=== PATIENT | female | born 1965 | race Hispanic/Latino ===

== ENCOUNTER 2019-06-26 12:48 | Outpatient (CLI) | payer OTHER, SELFPAY ==
--- NOTE | ~2019-06-26 | MMUS_ITS ---
EXAMINATION: MM diagnostic barrie BI w daljit, US breast LT complete HISTORY: Inversion of left nipple for 6 months TECHNIQUE: Bilateral ML, MLO and cc full field and left spot ML and cc Tomosynthesis views.were perfo rmed and synthetic 2-D images were generated. CAD analysis was submitted and interpreted. High resolu tion breast ultrasound was performed. COMPARISON: 05/24/2018, 05/17/2017, 05/08/2017 bilateral digital screening mammogram examinations BREAST PARENCHYMAL COMPOSITION: There are scattered areas of fibroglandular density. FINDINGS: MAMMOGRAPHIC FINDINGS: Scattered bilateral benign calcifications. No suspicious mass or architectural distortion, malignant calcification, skin thickening or retraction or significant new or developing density is detected. Th e nipples appear symmetric. ULTRASOUND: At 12:00 5 cm from the nipple there is a parallel circumscribed benign-appearing septated cystic lesi on measuring approximately 2 x 5 x 6 mm, without internal vascularity or posterior shadowing. The complete left breast was scanned. No suspicious mass or shadowing of the left breast is evident. IMPRESSION: 1. No mammographic evidence of malignancy 2. Routine annual mammographic screening is recommended BI-RADS Category 2: Benign finding(s). Reviewed, dictated and finalized at location A. G ADULT LIBRARIAN IMPRESSION: 1. No mammographic evidence of malignancy 2. Routine annual mammographic screening is recommended BI-RADS Category 2: Benign finding(s).
== END 2019-06-26 12:49 | disposition home or self-care (01) ==
PROVIDERS: PCP Registered Nurse; Visit Provider Registered Nurse
DX: N64.59 Other signs and symptoms in breast (principal)
CPT/HCPCS: 76641; 77062; 77066; G0279

== ENCOUNTER 2020-11-03 10:30 | Outpatient (CLI) | payer OTHER, SELFPAY ==
--- NOTE | ~2020-11-03 | MM_ITS ---
EXAMINATION: MM screening barrie BI w daljit HISTORY: Screening mammogram TECHNIQUE: Craniocaudal and mediolateral oblique 3-D tomosynthesis images were obtained and synthetic 2-D images were generated. CAD analysis was submitted and interpreted. COMPARISON: No prior mammogram is available for comparison at this institution. BREAST PARENCHYMAL COMPOSITION: There are scattered areas of fibroglandular density. FINDINGS: There are scattered bilateral benign calcifications. There is no evidence of suspicious mas s, calcification, or architectural distortion to suggest malignancy in either breast. There has been no suspicious interval change. IMPRESSION: 1. No mammographic evidence of malignancy. 2. Recommend routine screening mammography in one year. BI-RADS Category 2: Benign finding(s). Reviewed, dictated and finalized at location A.
== END 2020-11-03 10:31 | disposition home or self-care (01) ==
LOC: ANHIMG 10:33
PROVIDERS: PCP Registered Nurse; Visit Provider Registered Nurse
DX: Z12.31 Encounter for screening mammogram for malignant neoplasm of breast (principal)
CPT/HCPCS: 77063; 77067

== ENCOUNTER 2021-01-02 19:51 | Emergency (ER) | payer OTHER, SELFPAY ==
--- NOTE | ~2021-01-02 | XR_ITS ---
EXAMINATION: XR foot RT min 3V DATE: 01/02/2021 20:10 INDICATION: Right foot injury and pain. TECHNIQUE: 4 views of right foot were obtained. COMPARISON: Right foot radiographs 08/14/2016 FINDINGS: Bone alignment is normal. No fracture. There is moderate osteoarthritis of first metatarsop halangeal joint and mild osteoarthritis of some the interphalangeal and midfoot joints. There is hete rotopic calcification dorsal to the talar neck. There is an enthesophyte at plantar aspect of calcane al tuberosity. IMPRESSION: 1. Polyarticular osteoarthritis. Reviewed, dictated and finalized at location A.
--- NOTE | ~2021-01-02 | XR_ITS ---
EXAMINATION: XR ankle RT min 3V DATE: 01/02/2021 20:10 INDICATION: Right ankle injury and pain. TECHNIQUE: 4 views of right ankle were obtained. COMPARISON: None. FINDINGS: Bone alignment is normal. No fracture. There is an osteochondral lesion of medial talar dom e. There is mild osteoarthritis of talonavicular joint. There are enthesophytes at the posterior and plantar aspects of calcaneal tuberosity. IMPRESSION: 1. Osteochondral lesion of medial talar dome. Reviewed, dictated and finalized at location A.
[2021-01-02 19:59] VITALS: BP 148/73; PULSE 64; RESP 16; TEMP 36.7; O2SAT 100
[2021-01-02 20:10] VITALS: BP 148/73; PULSE 64; RESP 16; TEMP 36.7; O2SAT 100
--- NOTE | 2021-01-02 20:12 | ED.GENADULT ---
HPI - General Adult General Chief complaint: Extremity Injury, Lower Stated complaint: fell right foot Time Seen by Provider: 01/02/21 20:09 Source: patient, family (niece (Katina) in which Violeta request that she translates for her) and RN notes reviewed Mode of arrival: ambulatory (with crutches) Limitations: language barrier History of Present Illness HPI narrative: 55-year-old female presents with niece, both complains of pain to the right ankle for the past 51 minutes. Violeta twisted RT foot while walking down steps and heard a popping noise afterwards and now has RT foot and ankle pain. No treatment. Radiating pain from ankle to foot. ?No numbness or tingling or loss of mobility. ?Denies inability to bear weight. ?Exacerbation factor consists of movement and bearing weight. No relieving factors. Denies discoloration. ?Denies altered sensation, back pain, neck pain, and suspected foreign body. ?Denies hitting head or loss of consciousness. Denies fever or chills. Remains active. The patient and niece reports iVoleta has not been diagnosed with COVID-19. The patient and niece reports Violeta received 2 Pfizer COVID-19 vaccines. The patient and niece reports Violeta is not waiting for the results of a COVID-19 lab test. The patient and niece reports Violeta does not have weakness, fatigue, or myalgia. The patient and niece reports Violeta does not have a new or worsening cough or shortness of breath. The patient and niece reports Violeta does not have any rhinorrhea, congestion, loss of taste or smell, sore throat, and diarrhea. Denies recent traveling. Denies concerns for COVID-19 or exposures. At this time, the patient is not suspected of having COVID-19. Some parts of this dictation were generated by voice recognition software and may contain typographical and/or grammatical inaccuracies. Related Data Allergies Allergy/AdvReac Type Severity Reaction Status Date / Time No Known Allergies Allergy Verified 01/02/21 20:00 Review of Systems Review of Systems: CONSTITUTIONAL: Denies fever, chills, sweats. EYES: Denies visual changes, redness, discharge. ENT: Denies rhinorrhea, congestion, sore throat, otalgia. CARDIOVASCULAR: Denies chest pain, palpitations, edema. RESPIRATORY: Denies dyspnea, wheezing, cough GASTROINTESTINAL: Denies abdominal pain, nausea, vomiting, diarrhea. SKIN: Denies rash or itching. MUSCULOSKELETAL: Denies acute back pain or myalgia. Complains of RT ankle and foot swelling and pain. NEUROLOGIC: Denies numbness or focal weakness. PSYCHIATRIC: Denies anxiety or depression. All other systems reviewed & are unremarkable except as noted in HPI and below. PMFSH Past Medical History Medical History (Updated 01/10/21 @ 18:59 by RENEE Regan) Migraine No significant past medical history Surgical History Surgical History (Updated 01/10/21 @ 18:59 by RENEE Regan) No significant past surgical history Family History Family History (Updated 01/10/21 @ 18:59 by RENEE Regan) Father Acute myocardial infarction, Onset Age: 63 Mother Alive and well Social History Social History (Updated 01/10/21 @ 18:58 by RENEE Regan) Smoking status: Former smoker Tobacco type: cigarettes Second hand tobacco smoke exposure: Yes (spouse) Smoking end date: 06/14/17 Alcohol intake: never Substance use: never Substance use type: does not use Living arrangements: with family Occupation/Education: other Additional occupation/education comments: homemaker Gender identity (if verbalized by the patient): Female Sexual Orientation (if Verbalized by the Patient): Straight or Heterosexual Comments At time of signature, agree with the nurse past medical, surgical, social, and family history. There is no relevant family history pertinent to the presenting complaint. Exam Narrative: GENERAL: This is a well-nourished, well-developed patient, in no apparent dis
== END 2021-01-02 20:32 | disposition home or self-care (01) ==
PROVIDERS: Emergency Provider Nurse Practitioner Family; PCP Registered Nurse
DX: S93.601A Unspecified sprain of right foot, initial encounter (principal); X58.XXXA Exposure to other specified factors, initial encounter
CPT/HCPCS: 73610; 73630; 99213; G0463

== ENCOUNTER → 2021-09-09 12:50 | Outpatient (CLI) | payer OTHER, SELFPAY ==
--- NOTE | ~2021-09-09 | XR_ITS ---
EXAMINATION: XR shoulder RT min 2V INDICATION: Diffuse right shoulder pain TECHNIQUE: Four views of the right shoulder are submitted. COMPARISON: None FINDINGS: Normal alignment. No fracture. There is mild osteoarthritis of the acromioclavicular and gl enohumeral joints. Soft tissues are unremarkable. IMPRESSION: 1. Osteoarthritis without acute osseous abnormality. Reviewed, dictated and finalized at location B.
== END ==
PROVIDERS: PCP Registered Nurse; Visit Provider Registered Nurse
DX: M19.011 Primary osteoarthritis, right shoulder (principal)
CPT/HCPCS: 73030

== ENCOUNTER → 2021-11-03 16:38 | Outpatient (CLI) | payer OTHER, SELFPAY ==
--- NOTE | ~2021-11-03 | MR_ITS ---
EXAMINATION: MR shoulder RT wo con DATE: 11/03/2021 17:19 INDICATION: Right shoulder pain TECHNIQUE: Magnetic resonance imaging (MRI) of the right shoulder was performed without intravenous c ontrast. Sequences included axial PD-weighted FS FSE, coronal oblique PD-weighted FS FSE, coronal obl ique T2-weighted FS FSE, sagittal PD-weighted FS FSE, and sagittal T1-weighted SE. COMPARISON: None. FINDINGS: Coracoacromial arch: The acromion undersurface is curved in morphology (type II). The coracoacromial ligament is normal. M ild acromioclavicular osteoarthritis. Rotator cuff: Mild supraspinatus and infraspinatus tendinopathy with full-thickness tear along the greater tuberosi ty involving all but a few of the bursal sided fibers of the anterior most supraspinatus tendon as we ll as the anterior half of the infraspinatus tendon. The tear measures approximately 3.5 cm AP at the level of the lateral rim of the acromion and 2.7 cm medial to lateral. The teres minor tendon is nor mal. [Subscapularis tendinopathy with small longitudinal split tear at the cephalad third of the tend on extending between the bursa of the tendon contiguous with the transverse humeral ligament and the deeper portion of the tendon attached to the lesser tuberosity. There is partial subluxation of the l siena head biceps tendon across the medial rim of the cephalad aspect of the intertubercular groove and into the split tear defect. No asymmetric rotator cuff muscle atrophy. Biceps tendon, glenoid labrum and glenohumeral cartilage: Mild tendinopathy without discrete tear of the intra-articular long head biceps tendon. Glenoid labru m is normal. Mild partial-thickness cartilage loss with smooth chondral surface along the inferomedia l and anterosuperior aspects of the humeral head. Glenoid cartilage is normal. Fluid: Small glenohumeral joint effusion which extends to the full-thickness rotator cuff tear defect into t he subacromial/subdeltoid bursa. Mild synovitis at the axillary recess and at the subacromial/subdelt oid bursa. No loose osteochondral bodies. Bones: Normal marrow signal with no edema, fracture or abnormal marrow replacing process. Mild cystic change at the junction of the lateral rim of the intertubercular groove and the anteriormost superior facet footplate of the greater tuberosity. IMPRESSION: 1. Moderate-sized full-thickness tear involving the majority of the supraspinatus tendon and anterior half of the infraspinatus tendon. 2. Mild tendinopathy and small split tear occurring on the lateral rim of the lesser tuberosity betwe en the portion of the tendon attached to the lesser tuberosity and the more superficial fibers contig uous with the transverse humeral ligament. 3. Mild tendinopathy without discrete tear of the intra-articular long head biceps tendon which is pa rtially subluxed across the cephalad aspect of the medial rim of the intertubercular groove at the li bscapularis split tear defect. 4. Mild right glenohumeral and acromioclavicular osteoarthritis. Reviewed, dictated and finalized at location A. IMPRESSION: 1. Moderate-sized full-thickness tear involving the majority of the supraspinat us tendon and anterior half of the infraspinatus tendon. 2. Mild tendinopathy and small split tear occurring on the lateral rim of the l freeman tuberosity between the portion of the tendon attached to the lesser tuber osity and the more superficial fibers contiguous with the transverse humeral li gament. 3. Mild tendinopathy without discrete tear of the intra-articular long head bic eps tendon which is partially subluxed across the cephalad aspect of the medial rim of the intertubercular groove at the subscapularis split tear defect. 4. Mild right glenohumeral and acr
== END ==
PROVIDERS: PCP Registered Nurse; Visit Provider Nurse Practitioner Family
DX: M25.511 Pain in right shoulder (principal); M75.101 Unspecified rotator cuff tear or rupture of right shoulder, not specified as traumatic; M19.011 Primary osteoarthritis, right shoulder; S46.211A Strain of muscle, fascia and tendon of other parts of biceps, right arm, initial encounter
CPT/HCPCS: 73221

== ENCOUNTER → 2022-01-13 11:40 | Outpatient (CLI) | payer OTHER, SELFPAY ==
--- NOTE | ~2022-01-13 | MM_ITS ---
EXAMINATION: MM screening [facility] BI w daljit HISTORY: Screening mammogram TECHNIQUE: Craniocaudal and mediolateral oblique 3-D tomosynthesis images were obtained and synthetic 2-D images were generated. CAD analysis was submitted and interpreted. COMPARISON: 11/03/2020, 06/26/2019, 05/24/2018 BREAST PARENCHYMAL COMPOSITION: There are scattered areas of fibroglandular density. FINDINGS: RIGHT BREAST: There is a mass in the posterior third of the lower inner breast approximately 6 cm fro m the nipple. LEFT BREAST: There is no suspicious mass, calcification, or architectural distortion to suggest malig shonda. There has been no significant interval change. IMPRESSION: 1. Right breast mass. 2. Additional mammographic views and possible breast ultrasound are recommended. BI-RADS Category 0: Incomplete: Needs additional imaging evaluation. Reviewed, dictated and finalized at location A. IMPRESSION: 1. Right breast mass. 2. Additional mammographic views and possible breast ultrasound are recommended . BI-RADS Category 0: Incomplete: Needs additional imaging evaluation.
== END ==
PROVIDERS: PCP Registered Nurse; Visit Provider Registered Nurse
DX: Z12.31 Encounter for screening mammogram for malignant neoplasm of breast (principal); R92.8 Other abnormal and inconclusive findings on diagnostic imaging of breast
CPT/HCPCS: 77063; 77067

== ENCOUNTER 2022-01-13 12:49 | Outpatient (CLI) | payer OTHER, SELFPAY ==
--- NOTE | 2022-01-13 | ECG_ITS ---
Measurements Intervals [place] Rate: 59 P: 51 MI: 144 QRS: 53 QRSD: 86 T: 73 QT: 422 QTc: 421 Interpretive Statements SINUS BRADYCARDIA BORDERLINE ECG NO PREVIOUS ECG AVAILABLE FOR COMPARISON Electronically Signed On 01-13-2022 14:38:39 CDT by Samir Johnson D.O.
--- NOTE | ~2022-01-13 | XR_ITS ---
EXAMINATION: XR chest 2V DATE: 01/13/2022 13:11 INDICATION: Adult health exam. Preoperative assessment. TECHNIQUE: PA and lateral views of the chest were obtained. COMPARISON: None FINDINGS: The lungs are clear with no focal airspace opacities, pulmonary edema, pleural effusion or pneumothor ax. The cardiomediastinal silhouette is normal. Chronic appearing mild anterior wedging of a few mid and lower thoracic vertebral bodies. IMPRESSION: 1. No acute cardiopulmonary disease. Reviewed, dictated and finalized at location A.
== END 2022-01-13 12:50 | disposition home or self-care (01) ==
PROVIDERS: PCP Registered Nurse; Visit Provider Registered Nurse
DX: Z00.00 Encounter for general adult medical examination without abnormal findings (principal)
CPT/HCPCS: 71046; 93005

== ENCOUNTER 2022-02-10 00:59 | Day surgery (SDC) | payer OTHER, SELFPAY ==
[2022-02-03 11:20] VITALS: BMI 24.7
--- NOTE | 2022-02-03 11:29 | PC.NURSE ---
Report to the Outpatient Waiting Room, entrance under the green pavilion located off [facility], at time 6:00 on date 02/10/22. OR Time: 7:30. Time changes happen often and if your time is changed the preop area will call you the afternoon before. - You and your visitor will be asked to self-screen and do not enter if you have any COVID symptoms. - Only one visitor and NO children visitors are allowed at this time. - The patient visitor is requested to leave or wait in car when not with patient due to restrictions. - A mask is required within the hospital. Patients may have clear liquids (water, carbonated beverages, clear teas, apple juice) until 3 hours prior to surgery (4:30) with a maximum of 20 ounces. - No food from midnight until time of surgery Take the following medications with a SIP of water the morning of surgery: N/A Medications to discontinue per physician: N/A Date to take last dose: N/A Please no make-up, nail rwandan, hairspray, perfume, deodorant, or body powder the day of surgery. No jewelry (including any body piercings) or valuables the day of surgery, leave them at home. Please take a shower or bath the night before, or the morning of, surgery with an antibacterial soap. Wear comfortable, loose fitting clothing. - Jewelry must be removed prior to entering the operating room. Rings and piercings that are not removed may be cut off. - The hospital will not accept responsibility for valuables. - Please leave all valuables, including medications, at home the day of surgery. If you are going home after surgery, a licensed mail truck driver must drive you home. - NO public transportation without another adult. - We recommend that an adult stay with you for 24 hours following discharge. - We also recommend that you do not drive, make important decision, drink alcoholic beverages, or take any drugs that were not prescribed by your health care provider for at least 24 hours after your discharge time. Follow any additional instructions given to you from your surgeon. If you or anyone in your household have experienced Covid symptoms in the past week, please notify your surgeon or the nurse liaison at the phone number below for possible testing. Telephone instructions given to PT AND SON and asked if any additional questions and then verbalized understanding. Patient advised to call surgeon office or pre surgery nurse liaison [phone] if any additional questions.
[2022-02-10] VITALS (9 sets, daily range): BP systolic 103–132; BP diastolic 64–86; PULSE 69–83; RESP 12–16; TEMP 36–36.5; O2SAT 99–100
[2022-02-10] MEDS: CELECOXIB 200 MG CAPSULE PO (06:24)
[2022-02-10] MEDS: ACETAMINOPHEN 500 MG TABLET 1000 MG PO (06:24)
[2022-02-10] MEDS: LACTATED RINGERS 1,000 ML 30 ML IV CONT ×2 (06:35→10:17)
--- NOTE | 2022-02-10 06:50 | P.PNAN_ITS ---
Anes - Initial Pre Proc Eval Procedure: Operation Date: 02/10/22 07:30 Proposed Procedures p Right Rotator Cuff Repair - Joao Cain MD Date/Time: 02/10/22 06:50 Surgeon: Joao Cain MD Pre Op Diagnosis: Right Rot Cuff Tear Patient Data Age: 56 Gender: F Height: 1.68 m Weight: 74.4 kg Last Vital Signs Temp 36.0 C L 02/10/22 06:39 Pulse 70 02/10/22 06:39 Resp 16 02/10/22 06:39 BP 132/81 02/10/22 06:39 Pulse Ox 99 02/10/22 06:39 O2 Del Method Room Air 02/10/22 06:39 Allergies Allergy/AdvReac Type Severity Reaction Status Date / Time No Known Allergies Allergy Verified 02/03/22 11:19 Home Medications Medication Instructions Recorded Confirmed Type No Home Medications 02/03/22 02/10/22 History Patient hx anesthesia problems: none Family hx anesthesia problems: none Results Review: All pre-operative results and documents have been reviewed as part of the pre- operative evaluation. [facility] Past Medical History Medical History Migraine Surgical History Surgical History No significant past surgical history Family History Family History Father Acute myocardial infarction, Onset Age: 63 Mother Alive and well Social History Social History Smoking status: Never smoker Tobacco type: cigarettes Second hand tobacco smoke exposure: Yes (spouse) Smoking end date: 06/14/17 Alcohol intake: never Substance use: never Substance use type: does not use Living arrangements: with family Additional occupation/education comments: homemaker Gender identity (if verbalized by the patient): Female Sexual Orientation (if Verbalized by the Patient): Straight or Heterosexual Spiritual care concerns: No Anes - Eval Final PreProcedure Day of Procedure 02/10/22 06:50 Patient weight: overweight Heart: regular rate and rhythm Lungs: clear to auscultation Airway: Mallampati scale class II Neurological: other (alert) Last oral intake: >/= 8 hours ASA classification: II Emergent: no Anesthetic plan: proceed Anesthesia type and monitoring: general ETT and standard monitoring Results Review: All pre-operative results and documents have been reviewed as part of the pre- operative evaluation. Informed Consent: The patient's anesthetic plan and its attendant risks and benefits were discussed with the patient/family/POA. Questions were solicited and answers provided to the satisfaction of the patient/family/POA.
--- NOTE | 2022-02-10 07:14 | WPDHPUPDATE1 ---
History and Physical Update Update Date/Time: 02/10/22 07:14 History and Physical has been reviewed, including an updated exam of the patient. There are NO changes in the patient's condition. Risks, benefits, and alternatives have been discussed and questions answered. Patient agrees to proceed with procedure.
[2022-02-10] MEDS: ceFAZolin 2 GM/D5W 50 ML 2 GM/50 ML BAG IVPB (07:39)
--- NOTE | 2022-02-10 07:43 | WPDANESPNB ---
Anes - Peripheral Nerve Block Date/Time: 02/10/22 07:43 I have discussed with the patient/family/POA the placement of a peripheral nerve block for post-operative pain management, including associated risks, benefits, complications, and side effects. Alternative methods of post-operative analgesia were detailed. Questions were solicited and answers provided to the satisfaction of the patient/family/POA. Time-Out: A pre-procedural Time-Out was completed immediately before starting the procedure and confirmed: Patient Identification, Site, Procedure, Patient Position and the Availability of Requisite Equipment. Clinical Indications: Acute post-operative pain management requested by the operative surgeon. Nerve Block Insertion Note Anes-nerve block: interscalene right Patient position: other (sitting) Skin prep: chlorhexidine Needle: 22 gauge, stimulating, insulated echogenic needle. Needle length: 50 mm Technique: nerve stimulation lost at (mA) (.3) and ultrasound Technique comment: mid 2mg fent 100mcg Injectate: bupivacaine 0.5% with epi 5 mcg/ml (30ml no epi) and dexamethasone (mg) (4) Observations: tolerated well Complications: none Procedure start time:: 729 Procedure end time:: 736
--- NOTE | 2022-02-10 10:33 | W.PM.PROC2 ---
Procedure Note - Detailed Date of Procedure 02/10/22 Pre-op Diagnosis Right Rot Cuff Tear Post-op Diagnosis Same Procedure Performed REPAIR RIGHT ROTATOR CUFF Surgeon Joao Cain MD Anesthesia General Description of Procedure THE PATIENT WAS TAKEN TO THE OPERATING ROOM AND THEN INTUBATED AND PLACED IN THE BEACH CHAIR POSITION. THE RIGHT UPPER EXTREMITY WAS PREPPED AND DRAPED IN THE NORMAL STERILE FASHION. AN INCISION WAS MADE IN BETWEEN THE AMBER-LATERAL ACROMION AND THE AC JOINT. THE FASCIA WAS IDENTIFIED. NEXT A MINI OPEN INCISION WAS MADE THROUGH THE DELTOID MUSCLE EXPOSING THE SUBACROMIAL SPACE. A LIMITED ACROMIOPLASTY WAS PREFORMED. THE ROTATOR CUFF WAS IDENTIFIED. THERE WAS A LARGE FULL THICKNESS TEAR OF THE ENTIRE CUFF WITH RETRACTION. THE GREATER TUBEROSITY WAS DEBRIDED TO BLEEDING BONE. 3ARTHREX 5.5 SUTURE ANCHORS and 1 ARTHREX TISSUE ANCHOR WERE PLACED IN TO GOOD BONE AND HAD VERY GOOD BITES. SONIA-DAVID TYPE REPAIRS WERE DONE TO THE ROTATOR CUFF AND THERE WAS GOOD APPROXIMATION TO THE GREATER TUBEROSITY. THE REPAIR WAS EXCELLENT. THERE WAS NO IMPINGEMENT ON THE REPAIR FROM THE ACROMION WITH RANGE OF MOTION. THE WOUND WAS IRRIGATED WITH COPIOUS AMOUNTS OF ANTIBIOTIC SOLUTION. THE DELTOID MUSCLE WAS REPAIRED WITH #2 FIBER WIRE AND 0 VICRYL SUTURE. THE SUBCUTANEOUS LAYER WAS APPROXIMATED WITH 2-0 VICRYL. THE SKIN WAS APPROXIMATED WITH 3-0 QUIL AND DERMABOND. STERILE DRESSING WAS APPLIED. PATIENT WAS EXTUBATED. Estimated Blood Loss -10.0 Complications No immediate complications Condition Stable Disposition PACU
== END 2022-02-10 12:08 | disposition home or self-care (01) ==
PROVIDERS: PCP Registered Nurse; Visit Provider Orthopaedic Surgery
PROC: (CPT 23420; principal; 2022-02-10 07:30)
DX: M75.121 Complete rotator cuff tear or rupture of right shoulder, not specified as traumatic (principal); M25.511 Pain in right shoulder; G89.29 Other chronic pain; Z87.891 Personal history of nicotine dependence
CPT/HCPCS: 23412; A9270; C1713; J0330; J0690; J1100; J1170; J2250; J2370; J2405; J2704; J3010; J7120

== ENCOUNTER 2022-11-16 10:56 | Outpatient (CLI) | payer OTHER, SELFPAY ==
--- NOTE | ~2022-11-16 | MM_ITS ---
EXAMINATION: MM diagnostic [facility] BI w daljit HISTORY: Right breast mass on screening mammogram TECHNIQUE: Craniocaudal, mediolateral, and mediolateral oblique 3-D tomosynthesis images of the right breast were performed and synthetic 2-D images were generated. CAD analysis was submitted and interpreted. COMPARISON: 01/13/2022, 11/03/2020, 06/26/2019, 05/24/2018 BREAST PARENCHYMAL COMPOSITION: There are scattered areas of fibroglandular density. FINDINGS: There is a return to baseline fibroglandular appearance with spot compression of the right breast in the area questioned on screening mammogram. No persistent mass is identified. There is no suspicious calcification or architectural distortion. IMPRESSION: 1. No mammographic evidence of malignancy. 2. Screening mammography of the left breast is due in two months. BI-RADS Category 1: Negative Reviewed, dictated and finalized at location A. MTDD
== END 2022-11-16 10:57 | disposition home or self-care (01) ==
LOC: ANHIMG 10:58
PROVIDERS: PCP Registered Nurse; Visit Provider Registered Nurse
DX: R92.8 Other abnormal and inconclusive findings on diagnostic imaging of breast (principal)
CPT/HCPCS: 77061; 77062; 77065; 77066; G0279

== ENCOUNTER 2022-12-21 01:18 | Day surgery (SDC) | payer OTHER, SELFPAY ==
[2022-12-12 09:48] VITALS: BMI 25.9
[2022-12-21 06:47] VITALS: BP 126/79; PULSE 64; RESP 16; TEMP 36; O2SAT 99; BMI 25.7
[2022-12-21] MEDS: LACTATED RINGERS 1,000 ML 150 ML IV CONT (06:54)
--- NOTE | 2022-12-21 07:43 | P.PNAN_ITS ---
Anes - Initial Pre Proc Eval Procedure: Operation Date: 12/21/22 08:00 Proposed Procedures p Screening Colonoscopy - Jose Hamlin MD Date/Time: 12/21/22 07:43 Surgeon: Jose Hamlin MD Pre Op Diagnosis: neoplasm screening Patient Data Age: 57 Gender: F Height: 1.68 m Weight: 72.2 kg Last Vital Signs Temp 96.8 F L 12/21/22 06:47 Pulse 64 12/21/22 06:47 Resp 16 12/21/22 06:47 BP 126/79 12/21/22 06:47 Pulse Ox 99 12/21/22 06:47 O2 Del Method Room Air 12/21/22 06:47 Allergies Allergy/AdvReac Type Severity Reaction Status Date / Time No Known Allergies Allergy Verified 12/21/22 06:46 Home Medications Medication Instructions Recorded Confirmed Type No Home Medications 12/12/22 12/21/22 History Patient hx anesthesia problems: none Family hx anesthesia problems: none Results Review: All pre-operative results and documents have been reviewed as part of the pre- operative evaluation. [facility] Past Medical History Medical History Adhesive capsulitis of right shoulder Migraine Surgical History Surgical History No significant past surgical history Family History Family History Father Acute myocardial infarction, Onset Age: 63 Mother Alive and well Social History Social History Smoking status: Former smoker Tobacco type: cigarettes Second hand tobacco smoke exposure: Yes (spouse) Smoking end date: 06/14/17 Alcohol intake: never Substance use: never Substance use type: does not use Living arrangements: with family Occupation/Education: other Additional occupation/education comments: homemaker Gender identity (if verbalized by the patient): Female Sexual Orientation (if Verbalized by the Patient): Straight or Heterosexual Spiritual care concerns: No Anes - Eval Final PreProcedure Day of Procedure 12/21/22 07:43 Patient weight: normal Heart: regular rate and rhythm Lungs: clear to auscultation Airway: Mallampati scale class II Neurological: alert and oriented Last oral intake: >/= 8 hours ASA classification: II Emergent: no Anesthetic plan: proceed Anesthesia type and monitoring: general GIVS and standard monitoring Results Review: All pre-operative results and documents have been reviewed as part of the pre- operative evaluation. Informed Consent: The patient's anesthetic plan and its attendant risks and benefits were discu ssed with the patient/family/POA. Questions were solicited and answers provided to the satisfaction of the patient/family/POA.
--- NOTE | 2022-12-21 08:01 | PM.HPGS ---
History of Present Illness History of Present Illness Consent: Risks, benefits, and alternatives have been discussed and questions answered. Patient agrees to proceed with procedure. Chief complaint: neoplasm screening Narrative: Violeta Gonzales is a 57 year old female here for screening colonoscopy, last one about 8 years ago Review of Systems Constitutional: Constitutional: Denies headache(s) and Denies weakness Eyes: Eyes: Denies blurry vision ENT: Reports Normal hearing present, Denies headache(s) and Denies neck pain Cardiovascular: Cardiovascular: Denies chest pain and Denies dyspnea Respiratory: Respiratory: Denies dyspnea Gastrointestinal: Gastrointestinal: Reports no additional gastrointestinal complaints Genitourinary: Genitourinary: Denies dysuria Musculoskeletal: Musculoskeletal: Denies neck pain Integumentary/Breasts: Skin/Breast: Denies dry skin Neurologic: Reports Normal hearing present, Denies headache(s) and Denies weakness Psychiatric: Psychiatric: Denies anxiety Endocrine: Endocrine: Denies change in body appearance Hematologic/Lymphatic: Hematologic/Lymphatic: Denies easy bleeding Allergic/Immunologic: Allergic/Immunologic: Denies urticaria PMFSH Past Medical History Medical History (Updated 12/21/22 @ 08:01 by Jose Hamlin MD) Adhesive capsulitis of right shoulder Colon cancer screening Migraine Surgical History Surgical History No significant past surgical history Family History Family History Father Acute myocardial infarction, Onset Age: 63 Mother Alive and well Social History Social History Smoking status: Former smoker Tobacco type: cigarettes Second hand tobacco smoke exposure: Yes (spouse) Smoking end date: 06/14/17 Alcohol intake: never Substance use: never Substance use type: does not use Living arrangements: with family Occupation/Education: other Additional occupation/education comments: homemaker Gender identity (if verbalized by the patient): Female Sexual Orientation (if Verbalized by the Patient): Straight or Heterosexual Spiritual care concerns: No Meds Home Medications and Allergies Home Medications Medication Instructions Recorded Confirmed Type No Home Medications 12/12/22 12/21/22 History Allergies Allergy/AdvReac Type Severity Reaction Status Date / Time No Known Allergies Allergy Verified 12/21/22 06:46 Vital Signs Vital Signs - 24 hr 12/21/22 06:47 Temperature 96.8 F L Pulse Rate 64 Respiratory Rate 16 Blood Pressure 126/79 Pulse Oximetry 99 Oxygen Delivery Room Air Exam Const: General: comfortable and no acute distress HENMT: Face/Nose/Sinus: Normal nares present Eyes: General: appearance normal, both eyes and all related structures Neck: Neck: no JVD Resp: Auscultation: clear to auscultation bilaterally Cardio: Rate: regular rate Rhythm: regular rhythm GI: Inspection: non-distended GI Palp: Yes Soft to palpation Skin: General skin exam: normal color Neuro: General: gait normal Speech: normal speech Extrem: General: normal to inspection Psych: Mental Status: mental status grossly normal Assessment and Plan Assessment and plan (1) Colon cancer screening: Code(s): Z12.11 - Encounter for screening for malignant neoplasm of colon Status: Acute Assessment and Plan: colonoscopy
[2022-12-21 08:24] VITALS: BP 88/53; PULSE 58; RESP 21; O2SAT 97
[2022-12-21 08:34] VITALS: BP 100/69; PULSE 64; RESP 19; O2SAT 99
[2022-12-21 08:44] VITALS: BP 120/77; PULSE 59; RESP 21; O2SAT 99
== END 2022-12-21 08:55 | disposition home or self-care (01) ==
PROVIDERS: PCP Registered Nurse; Visit Provider Internal Medicine Gastroenterology
PROC: 0DJD8ZZ Inspection of Lower Intestinal Tract, Via Natural or Artificial Opening Endoscopic (ICD-10-PCS; CPT 45378; principal; 2022-12-21 08:00)
DX: Z12.11 Encounter for screening for malignant neoplasm of colon (principal); D12.5 Benign neoplasm of sigmoid colon; K57.30 Diverticulosis of large intestine without perforation or abscess without bleeding; K64.8 Other hemorrhoids; Z87.891 Personal history of nicotine dependence
CPT/HCPCS: 45385; 88305; J2704; J7120

== ENCOUNTER 2024-05-06 11:25 | Outpatient (CLI) | payer BC, SELFPAY ==
--- NOTE | ~2024-05-06 | MM_ITS ---
EXAMINATION: MM screening [facility] BI w daljit HISTORY: Screening TECHNIQUE: Craniocaudal and mediolateral oblique 3-D tomosynthesis images were obtained and synthetic 2-D images were generated. CAD analysis was submitted and interpreted. COMPARISON: 11/16/2022 and dating back to 06/26/2019 BREAST PARENCHYMAL COMPOSITION: There are scattered areas of fibroglandular density. FINDINGS: Punctate calcifications detected bilaterally stable and benign in appearance, primarily melva mal in origin. Otherwise stable parenchymal pattern without suspicious microcalcifications, architectural distortion , discrete masses or significant asymmetry. IMPRESSION: 1. No mammographic evidence of malignancy. 2. Recommend routine screening mammography in one year. BI-RADS Category 2: Benign finding(s). Reviewed, dictated and finalized at location A. [employer]
== END 2024-05-06 11:26 | disposition home or self-care (01) ==
LOC: ANHIMG 11:27
PROVIDERS: PCP Registered Nurse; Visit Provider Registered Nurse
DX: Z12.31 Encounter for screening mammogram for malignant neoplasm of breast (principal)
CPT/HCPCS: 77063; 77067

== ENCOUNTER 2024-07-16 14:17 | Outpatient (CLI) | payer BC, SELFPAY ==
--- NOTE | ~2024-07-16 | XR_ITS ---
XR knee LT 3V Ordering provider: Bernadette Abdalla, PA History: . Pain in lt knee . Comparison: None. FINDINGS: BONES: No acute fracture or dislocation. JOINT SPACES: Normal. SOFT TISSUES: Normal. IMPRESSION: No acute osseous abnormality left knee. Reviewed, dictated and finalized at location A. GEMENT DEVELOPER
--- OUTSIDE RECORDS SUMMARY | 2024-07-16 15:59 | XMS_ITS | Continuity of Care Document ---
Author Organization [facility] Address [address] [place] [address] Care Team Providers Care Manager Nursing Home Name Role Phone BAMBIMADI MALONE Primary Care Provider [phone] JESSICA KELSEY Orthopedic Surgeon IZZY VIRK Narrow Gauge Engineer [phone] Assessment No assessment recorded. Plan of Treatment Reminders Order Date Submit Date Provider Last Modified By Organization Details Last Modified Time Details Appointments ANY 30 2024 01:00P MIGUEL ÁNGEL LAGUNA Not available Not available Not available Lab None recorded. Referral orthopedi c surgeon referral 2024 025 [facility] Jessica Kelsey MD, [address], [facility] [address], [address], 07/16/2024 16:45:22 podiatris t referral 2024 025 [email or web address] [facility], [address] , [place], [address], 07/16/2024 16:38:39 Procedures None recorded. Surgeries None recorded. Imaging XR, knee, 3 view 2024 025 [facility] (Imaging), [address], [place], [address], 07/16/2024 16:26:47 Medication Orders None recorded. Patient TargetsNo targets recorded. Patient InstructionsNo instructions recorded. Reason for Referral Orthopedic Surgeon Referral for Patellar bursitis of left knee s/p fall Mar 2024, fluid to kneecap has not resolved Referring Physician: [facility]adette [facility], Encounter Date: 07/16/2024 Grocery Sacker Referral for Pain of left heel Referring Physician: Bernadette Abdalla [facility] Medicine, Encounter Date: 07/16/2024 Results Created Date Observation Date Name Description Value Unit Range Abnormal Flag Note LastModifiedBy Organization Detail LastModifiedTime 07/17/1907/16/2024 imagi ng/di agnos tic resul t No observ ation record ed. [facility] [address], [place], [address], 07/16/2024 16:29:05 07/17/1907/16/2024 XR, knee, 3 view No observ ation record ed. [facility] [address], [place], [address], 07/16/2024 16:39:04 Result Notes None recorded. 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 DICK Browning Attn: Luz Mariabill g,[address] [facility], [place], [address], [place] - [facility] 2 11:59:59 Family history of Raised blood lipids 340015643 [facility]: Accountin g,[address] [facility], [place], [address], [place] - [facility] 2 11:59:59 Body mass index 25-29 - overweigh t 719527005 Active 2021 Madi Maldonado [facility] Attn: Accountin g,[address] [facility], [place], [address], [place] [facility] 2 11:04:02 Former light tobacco smoker 212031952154 102 Active 2021 Madi Maldonado [facility] Attn: Accountin g,[address] [facility], [place], [address], [place] [facility] 2 11:04:02 Mixed hyperlipi demia 690532090 Active 2021 Madi Maldonado [facility] Attn: Accountin g,[address] [facility], [place], [address], [place] [facility] 2 11:04:02 Prediabet es 894879360 Active 2021 [facility]donado [facility] Attn: Accountin g,[address] [facility], [place], [address], [place] [facility] 2 11:04:02 Vitamin D deficienc y 88513655 Active 2021 [facility]donado [facility] Attn: Accountin g,[address] [facility], [place], [address], [place] [facility] 2 11:04:02 Mammograp hic mass of right breast 004373312656 24101 Active 2021 JULIUS Browning Attn: Accountin g,[address] [facility], [place], [address], [place] [facility] 2 11:47:24 Hemorrhoi ds 66814264 Active 2018 Maid Maldonado [facility] Attn: Accountbill g,[address] [facility], [place], [address], [place] [facility] 3 17:51:36 Screening for malignant neoplasm of colon Active 2022 Madi Maldonado [facility] Attn: Accountin g,[address] [facility], [place], [address], [place] [facility] 3 10:44:32 Postmenop ausms state 38066491 Active 2022 Madi Maldonado [facility] Attn: Accountin g,[address] [facility], [place], [address], [place] [facility] 3 14:01:12 Tubular adenoma of colon 401776451 Active 2022 Madi Maldonado [facility] Attn: Accountbill g,[address] [facility], [place], [address], [place] [facility] 4 14:21:41 Osteoarth ritis 813830041 Active Ericka maddox [place], [place] [facility] 2 10:22:09 Allergic rhinitis 84882319 Active Ericka maddox [place], [place] [facility] 2 10:21:55 Acute sinusitis 30667130 Completed 03/27/2016 Melissa Kirkpatrick RN null, [place] [facility] 6 12:29:01 Allergic pharyngit is 345890670 Completed 03/27/2016 Melissa Kirkpatrick [place], [place] [facility] 6 12:29:11 Backache with radiating pain 289114103 Completed 03/27/2016 Melissa Kirkpatrick [place], [place] [facility] 6 12:29:06 Obesity 707912914 Active Madi Maldonado [facility] Attn: Accountin g,[address] [facility], [place], [address], [place] [facility] 2 11:59:59 Contusion of toe 06985541 Completed 03/27/2016 Melissa Kirkpatrick RN null, [facility] 6 12:29:15 Crushing injury of toe 50059024 Completed 03/27/2016 Melissa Kirkpatrick RN null, [facility] 6 12:29:19 Abdominal bloating 121537694 Completed 03/27/2016 Melissa Kirkpatrick RN null, [facility] 6 12:28:57 Problem Notes None recorded. Procedures Surgical History Date Name Laterality Status Provider Name and Address Organization Details Recorded Time 3 Date of [facility] 10/16/2023 14:14:43 3 Date of Last Mammogram completed Ericka Allred [facility] 10/16/2023 14:14:15 2 complete repair of rotator cuff completed RENEE Browning-POORNIMA Attn: Accounting,[address] [place], [address], [facility] 10/13/2022 13:59:17 Imaging Results None recorded. Procedure Notes None recorded. Medical Equipment None Reported. Allergies No known drug allergies Medications Name Sig Start Date Stop Date Status Note LastModified by Organization Details LastModified Time celecoxib 200 mg capsule Take by oral route for 20 days. 08/29 completed 06/08/22: Pt advised to get at [facility] for $10.00 Not Available Not Available Not Available ipratropi um 0.5 mg-albute rol 3 mg (2.5 mg base)/3 mL nebulizat ion soln Inhale 3 mL by nebuliza tion route as directed . 05/05 completed Not Available Not Available Not Available cetirizin e 10 mg tablet TAKE 1 TABLET BY MOUTH ONCE DAILY active Not Available Not Available No t Available azithromy meghan 250 mg tablet Take 2 tablets orally today; followed by 1 tablet orally on days 2-5. 08/19 completed Not Available Not Available Not Available ibuprofen 800 mg tablet TAKE 1 TABLET BY MOUTH THREE TIMES DAILY NEEDED FOR PAIN 10/07 completed Not Available Not Available Not Available simethico ne 180 mg capsule Take 1 capsule twice a day by oral route. 08/29 completed Not Available Not Available Not Available hydrocodo ne 5 mg-acetam inophen 325 mg tablet 07/20 completed Not Available Not Available Not Available meloxicam 15 mg tablet TAKE 1 TABLET BY MOUTH ONCE DAILY NEEDED FOR 30 DAYS 10/07 completed Not Available Not Available Not Available prednison e 20 mg tablet TAKE 3 TABLETS BY MOUTH FOR 3 DAYS, THEN TAKE 2 TABLETS BY MOUTH FOR 3 DAYS, THEN TAKE 1 TABLET BY MOUTH FOR 3 DAYS 10/07 completed Not Available Not Available Not Available penicilli n V potassium 500 mg tablet Take 1 tablet every 6 hours by oral route for 10 days. 05/26 completed Not Available Not Available Not Available sulfameth oxazole 800 mg-trimet hoprim 160 mg tablet 04/23 completed Not Available Not Available Not Available ketorolac 10 mg tablet 05/05 completed Not Available Not Available Not Available meloxicam 7.5 mg tablet Take 1 tablet twice a day by oral route. 03/27 completed Not Available Not Available Not Available amoxicill in 875 mg tablet TAKE 1 TABLET BY MOUTH EVERY 12 HOURS FOR 10 DAYS 10/13 completed Not Available Not Available Not Available clindamyc in 1 % topical gel APPLY TOPICALL Y TO SHOULDER EVERY DAY UNTIL THE DAY OF SURGERY 05/26 completed Not Available Not Available Not Available benzonata te 100 mg capsule 1 capsule 3 x per day as needed for cough 08/19 completed Not Available Not Available Not Available hydrocodo ne 7.5 mg-acetam inophen 325 mg tablet TAKE 1 TABLET BY MOUTH EVERY 6 HOURS NEEDED FOR PAIN 05/26 completed Not Available Not Available Not Available ranitidin e 150 mg tablet 01/26 completed Not Available Not Available Not Available omeprazol e 20 mg capsule,d elayed release Take 1 capsule every day by oral route. active Not Available Not Available No t Available hydroxyzi ne HCl 25 mg tablet Take 1 tablet 3 times a day by oral route as needed for 5 days. 05/05 completed Not Available Not Available Not Available ergocalci ferol (vitamin D2) 1,250 mcg (50,000 unit) capsule Take 1 capsule by mouth once a week active Not Available Not Available No t Available ibuprofen 600 mg tablet TAKE 1 TABLET BY MOUTH THREE TIMES DAILY active Not Available Not Available No t Available methylpre dnisolone 4 mg tablets in a dose pack TAKE BY MOUTH DIRECTED ON INSIDE OF PACKAGE 10/13 completed Not Available Not Available Not Available fluticaso ne propionat e 50 mcg/actua tion nasal spray,nestor pension USE 1 SPRAY(S) IN EACH NOSTRIL ONCE DAILY 10/13 completed Not Available Not Available Not Available Sudafed 12 Hour 120 mg tablet,ex tended release Take 1 tablet every 12 hours by oral route as needed. 03/27 completed Not Available Not Available Not Available ciproflox acin 0.3 %-dexamet hasone 0.1 % ear drops,nestor pension INSTILL 4 DROPS INTO AFFECTED EAR(S) BY OTIC ROUTE 2 TIMES PER DAY FOR 7 DAYS 01/10 completed Not Available Not Available Not Available nitrofura ntoin monohydra te/macroc rystals 100 mg capsule Take 1 capsule every 12 hours by oral route for 7 days. 08/29 completed Not Available Not Available Not Available chlorhexi dine gluconate 0.12 % mouthwash RINSE 15 ML OF SOLUTION IN MOUTH TWICE DAILY 05/26 completed Not Available Not Available Not Available diclofena c 1 % topical gel APPLY 2 GRAMS TO THE AFFECTED AREA(S) BY TOPICAL ROUTE 4 TIMES PER DAY 01/10 completed Not Available Not Available Not Available GaviLyte- G 236 gram-22.7 4 gram-6.74 gram-5.86 gram oral solution 03/27 completed Not Available Not Available Not Available Vitals Date Recorded Body height Body mass index (BMI) Body weight Oxygen saturation Oxygen saturation in Arterial blood by Pulse oximetry Heart rate Respiratory rate Systolic blood pressure Diastolic blood pressure Provider Name and Address Organization Details Last Updated DateTime 5 166.37 cm 26.5 kg/m2 32085.9 6 g 97 % 97 % 70 /min 16 /min 112 mm[Hg] 76 mm[Hg] Vicki Acosta [place] - [facility] 5 14:08:21 Social History Question Answer Notes LastModified by Organizat ion Details LastModified Time Tobacco Smoking Status Former Smoker stopped Apr 2018 Gina Mullernandez [facility], [place] - [facility] 06/06/2019 10:13:58 Do You Have An Advance Directive? No Information not available 10/13/2020 What Is Your Level Of Alcohol Consumption? None Information not available 03/27/2016 Are You Blind Or Do You Have Difficulty Seeing? No Information not available 10/13/2020 What Is Your Level Of Caffeine Consumption? Heavy Coffee Information not available 10/13/2020 How Much Tobacco Do You Chew? None Information not available 06/06/2019 In The 14 Days Before Symptom Onset, Have You Had Close Contact With A Laboratory-confir med COVID-19 While That Case Was Ill? No Information not available 09/08/2021 In The 14 Days Before Symptom Onset, Have You Had Close Contact With A Person Who Is Under Investigation For COVID-19 While That Person Was Ill? No Information not available 09/08/2021 Have You Been To An Area Known To Be High Risk For COVID-19? No Information not available 09/08/2021 Are You Currently Employed? No Information not available 10/13/2020 Are You Deaf Or Do You Have Serious Difficulty Hearing? No Information not available 10/13/2020 What Type Of Diet Are You Following? REGULAR Information not available 03/27/2016 Which Illicit Or Recreational Drugs Have You Used? No Information not available 06/06/2019 Education 9 Information no t available 03/27/2016 What Is Your Occupation? Homemaker Information not available 06/06/2019 Are There Any Guns Present In Your Home? No Information not available 03/27/2016 Hard Of Hearing Or Deaf In One Or Both Ears? No Information not available 03/27/2016 Legally Blind In One Or Both Eyes? No Information no t available 03/27/2016 Marital Status Informatio n not available 03/27/2016 What Was The Date Of Your Most Recent Tobacco Screening? 10/16/2023 Information not available 10/16/2023 How Many Children Do You Have? 2 Information not available 10/13/2020 Performs Monthly Self-breast Exam? Yes Information no t available 03/27/2016 What Is Your Relationship Status? Information not available 10/13/2020 Do You Use Your Seat Belt Or Car Seat Routinely? Yes Information not available 10/13/2020 Seat Belts Used Routinely Yes Information not available 03/27/2016 Smoke Alarm In Home Yes Information not available 03/27/2016 Do You Have Smoke And Carbon Monoxide Detectors In Your Home? Yes Information not available 10/13/2020 At What Age Did You Start Smoking Tobacco? 15 Light Smoker Towards Later Years Heavier Information not available 06/06/2019 Are You Passively Exposed To Smoke? No Information no t available 10/13/2020 Do You Or Have You Ever Used Smokeless Tobacco? Never Used Smokeless Tobacco Information not available 06/06/2019 How Much Tobacco Do You Smoke? No [email or web address] Information not available 06/06/2019 General Stress Level Low Information not available 03/27/2016 Do You Feel Stressed (tense, Restless, Nervous, Or Anxious, Or Unable To Sleep At Night)? [id number] Information not available 10/13/2021 Do You Use Any Illicit Or Recreational Drugs? No Information not available 10/07/2021 Do You Use Sunscreen Routinely? No Information not available 10/13/2020 Has Tobacco Cessation Counseling Been Provided? No Information not available 10/13/2022 On What Date Was Tobacco Cessation Counseling Provided? 10/16/2023 Information not available 10/16/2023 How Many Years Have You Smoked Tobacco? 16 Information not available 01/26/2015 Do You Or Have You Ever Used Any Other Forms Of Tobacco Or Nicotine? No Information not available 08/29/2022 Sex: Female Functional Status Question Answer Note LastModified by Organizat ion Details LastModified Time Are you able to care for yourself? Yes Information not available 10/13/2020 What is your exercise level? Occasional Information not available 03/27/2016 Mental Status None recorded. Family History Relationship Description Onset Age of this Age Resolved Age Notes LastModified by Organization Details LastModified Time Mother Hypertensive disorder [email or web address] Not available 04/2015 12:00:13 Brother Diabetes mellitus [email or web address] Not available 04/2015 12:00:13 Brother Hypertensive disorder 59 [email or web address] Not available 2019 10:43:17 Brother Heart disease 59 [email or web address] Not available 2019 10:43:59 Brother Myocardial infarction 59 [email or web address] Not available 06/06 10:44:12 Sister Osteoporosis 50 [email or web address] Not availab le 03/27/2016 12:55:21 Sister Depressive disorder [email or web address] Not available 2021 12:13:34 Father Heart disease 59 65 yarauz Not available 2015 12:56:09 Father Myocardial infarction 63 [email or web address] Not available 01/03 13:34:42 Medical History Condition Response Muscle, Joint, or Bone Problems Y Other Y Anemia Y Headaches Y GI Problems Y Allergies Y Gynecological History Statement/Question Response If Post Menopausal, Age at Menopause 49 Date of Last Mammogram 10/13/2022 Date of LMP 05/14/2014 Menses Monthly N Date of Last Pap Smear 11/16/2022 Current Control Method Menopause Age at First Child 32 Obstetrics History GPAL:G 3 P 0 0 1 2 Type Value Spontaneous 1 Living 2 Total 3 Immunizations Vaccine Type Date Status Note Provider Nam e and Address Organization Details Recorded Time SARS-COV-2 (COVID-19) vaccine, UNSPECIFIED 1 completed BETTY Arellano, [place] 10/13/2020 11:58:14 SARS-COV-2 (COVID-19) vaccine, UNSPECIFIED 1 completed BETTY Arellano, [place] 10/13/2020 11:58:27 Influenza, split virus, quadrivalent, PF 6 completed Not Available [facility] 05/31/2019 02:47:57 Influenza, split virus, quadrivalent, preservative 7 completed Not Available [facility] 05/31/2019 02:34:28 Influenza, split virus, quadrivalent, preservative 8 completed Not Available [facility] 05/31/2019 02:42:31 Pneumococcal conjugate PCV 13 8 completed Not Available [facility] 05/31/2019 02:36:32 Influenza, split virus, quadrivalent, PF 4 completed Melissa Kirkpatrick RN null, [facility] 01/26/2015 15:03:05 Tdap 4 completed Melissa Kirkpatrick RN null, [facility] 01/26/2015 15:03:05 Influenza, split virus, quadrivalent, preservative 9 completed Not Available [facility] 05/31/2019 02:44:16 Td (adult), 2 Lf tetanus toxoid, preservative free, adsorbed 4 completed Gina Glover MA null, [facility] 10/16/2023 15:04:14 Influenza, split virus, trivalent, preservative 5 completed Not Available [facility] 05/31/2019 02:32:29 Past Encounters Encounter ID Performer Location Encounter Start Date Encounter Closed Date Diagnosis/Indication Diagnosis SNOMED-CT Code Diagnosis ICD10 Code Diagnosis Note [id number] MIGUEL ÁNGEL SALDANA [facility]ly [facility] [address] [place] [address] 07/16/2024 14:03:35 07/16/2024 14:39:36 Pain of left knee joint 3421674229 17232 M25.562 fell 2 months ago and landed with L leg/knee twisted under herhas had bump/swell ing to knee cap sincepain with pressing on L knee cap and kneelingPE x- prepatella r bursitis to L knee 2 cm x 2 cm, FROM L knee jointorder ed XR Patellar b ursitis of left knee 1278771798 358531 M70.52 refer to Ortho Pain of left heel 325186 7805 472909 M79.672 chronicfla res from time to [facility] and had steroid injections improvemen t with wearing flat shoesPEx- mild TTP L heelrefer back to podiatryc/ w OTC txs Health Concerns Section Related Observation LastModified by Organization Detai ls LastModified Time None Recorded Concern Status LastModified by Organization Details LastModified Time None Recorded Payers Encounter Date Sequence Insurance Name Policy Number Policy Man Covered Member ID Man Member ID Guarantor Name 07/16/2024 2 *SELF PAY* Betty Gonzales 07/16/2024 1 [place] [id number] Violeta Gonzales [id number] Violeta Gonzales Notes Date Note Type Note Provider Name and Address Organization Details Recorded Time 07/16/2024 text/html Pt presents with L heel and L knee pain x2 months. States that two months ago, she slipped on ice, fell with her L leg/knee twisted underneath her and has had bump on knee since then. She has pain with pressing on knee cap and kneeling. Reports that L heel pain started flaring up after she fell. H/o chronic L heel pain, went to lead installer, told she has high arches, and given steroid injections. Admits that wearing flat shoes helps with heel pain, but flat shoes cause her to have low back pain. Pt has been using ice and rolling out L heel with frozen water bottle. MIGUEL ÁNGEL SALDANA Attn: Accounting,[address] [facility], [place], [address], [place] [facility] 07/16/2024 16:04:25 OBGyn Episode No OBEpisode recorded.
--- OUTSIDE RECORDS SUMMARY | 2024-07-16 15:59 | XMS_ITS | Data Portability ---
Author Organization Florencio HALLokjosé Navarro Address [address] [facility] [place] [id number] Care Team Providers Care Tie Knitter Helper Name Role Phone MADI LACY Primary Care Provider JESSICA CAIN Orthopedic Surgeon [phone] IZZY VIRK Software Integrator Assessment No assessment recorded. Plan of Treatment Reminders Order Date Submit Date Provider Last Modified By Organization Details Last Modified Time Details Appointments ANY 2024 01:00P MIGUEL ÁNGEL LAGUNA Not available Not available Not available Lab vagina l pathog ens panel, COREY+pr obe, vagina l fluid 2023 024 [facility], [address] [place] [address], [facility] [address], [place], [address], 10/18/2023 06:23:25 vitami n B12 + folate , serum or blood 2023 024 [facility], [address] [place] [address], [facility] [address], [place], [address], 10/17/2023 08:31:32 TSH, ultra- sensit yoan, serum 2023 024 [facility], [address] [place] [address], [address], [place], [address], 10/17/2023 08:31:31 CMP, serum or plasma 2023 024 [facility], [address] [place] [address], [address], [place], [address], 10/17/2023 08:31:28 urinal ysis, comple te 2023 024 [facility], [address], [address], [place], [address], 10/17/2023 08:31:34 CBC 2023 024 [facility], [address], [address], [place], [address], 10/17/2023 08:31:35 HbA1c (hemog lobin A1c), blood 2023 024 [facility] In-Office Order, Internal Use Only DO Not Attach Compendium DO Not Attach Compendium, Do Not Delete/merge, [id number] 10/16/2023 15:05:23 vitami n D, 25-hyd angelo, total, serum 2023 024 [facility], [address], [address], [place], [address], 10/17/2023 08:31:37 vitami n D, 25-hyd angelo, total, serum 2022 023 [facility], [address], [address], [place], [address], 10/14/2022 17:08:50 lipid panel, serum 2022 023 [facility], [address], [address], [place], [address], 10/13/2022 22:07:35 cytolo gy report , thin prep, smear or scrapi ng, cervic al or vagina l 2022 023 [facility], [address], [address], [place], [address], 10/17/2022 16:14:31 cultur e, urine 2022 023 [facility], [address], [address], [place], [address], 05/28/2022 04:06:40 urinal ysis, dipsti ck 2022 023 roberto In-Office Order, Internal Use Only DO Not Attach Compendium DO Not Attach Compendium, Do Not Delete/merge, [id number] 05/26/2022 14:49:02 Referral orthop edic surgeo n referr al 2024 025 [facility], [address], [address], [place], [address], 07/16/2024 16:45:22 podiat rist referr al 2024 025 [email or web address], [address], [place], [address], 07/16/2024 16:38:39 gastro entero logist referr al - needs colono scopy 2022 023 TIMOTEO simmons MD, [address], [address], [place], [address], 12/21/2022 09:05:06 Procedures None record ed. Surgeries None record ed. Imaging XR, knee, 3 view 2024 025 [facility]), [address], [place], [address], 07/16/2024 16:26:47 MAMMO, diagno stic, digita l, bilate ral 2022 023 [facility], [address], [address], [place], [address], 11/16/2022 12:53:33 Medication Orders Vitami n D2 1,250 mcg (50,00 0 unit) capsul e 2023 024 [facility], [address] [place], [address], 10/16/2023 14:36:53 flutic asone propio manjinder 50 mcg/ac tuatio n nasal spray, suspen barrett 2022 023 [facility], [address] [place] [address], [address], 10/13/2022 10:22:50 Medrol (Vimal) 4 mg tablet s in a dose pack 2022 023 [facility], [address] [place] [address], [address], 10/13/2022 10:20:34 amoxic illin 875 mg tablet 2022 023 [facility] [address], [address] [place] [address], [address], 10/13/2022 10:20:36 cetiri zine 10 mg tablet 2022 023 [facility], [address] [place] [address], [address], 08/29/2022 13:00:41 simeth icone 180 mg capsul e 2022 023 [facility], [address] [place] [address], [address], 08/29/2022 12:28:31 omepra zole 20 mg capsul e,jabier yed releas e 2022 023 [facility], [address] [place] [address], [address], 05/26/2022 14:49:15 Macrob id 100 mg capsul e 2022 023 [facility], [address] [place], [address], 08/29/2022 12:28:26 Celebr ex 200 mg capsul e 2022 023 [facility], [address] [place], [address], 08/29/2022 12:27:35 Patient TargetsNo targets recorded. Patient Instructions Encounter Date Encounter Id Patient Instructions Last Modified By Organization Details Last Modified Time 05/26/2022 [id number] annia en la lita na: instrucciones de cuidado - [blood in the urine: care instructions] yarauz Not available 05/26/2022 14:49:01 aprenda acerca d el peso saludable - [learning about healthy weight] yarauz Not available 05/26/2022 17:56:10 A healthy lifestyle: care instructions yarauz Not available 05/26/2022 17:56:10 dolor abdominal: instrucciones de cuidado - [abdominal pain: care instructions] yarauz Not available 05/26/2022 14:49:02 will call if uri ne culture positive yarauz Not available 05/26/2022 17:53:26 increase fluids heating pad to abdomen bland diet worsening symptoms seek re-evaluation immediately yarauz Not available 05/26/2022 17:53:16 08/29/2022 [id number] aprenda acerca d el peso saludable - [learning about healthy weight] yarauz Not available 08/29/2022 13:00:28 Fluid often buil ds up inside the ear during a cold or allergies. Usually the fluid drains away, but sometimes a small tube in the ear, called the eustachian tube, stays blocked for months. Symptoms of fluid buildup may include: Popping, ringing, or a feeling of fullness or pressure in the ear. Trouble hearing. Balance problems and dizziness. yarauz Not available 08/29/2022 13:00:25 10/13/2022 [id number] A healthy lifestyle: care instructions yarauz Not available 10/13/2022 10:56:36 aprenda acerca d el peso saludable - [learning about healthy weight] yarauz Not available 10/13/2022 10:56:37 SBE teaching/handout Calcium in diet plus vitamin D daily exercise monitor diet see dentist every 6 months see shine worker every 1-2 years HIV testing recommendation condoms prn contraceptive options-pt menopausal new guidelines--pap with Hpv in 3-5 years--pelvic exam every year Mammogram yearly after age 40 Check B/P once yearly yarauz Not available 10/13/2022 11:04:57 10/16/2023 [id number] A healthy lifestyle: care instructions yarauz Not available 10/16/2023 14:30:03 refuerzo contra la difteria y el t tanos: instrucciones de cuidado - [tetanus and diphtheria booster: care instructions] yarauz Not available 10/16/2023 14:45:53 estomatitis: instrucciones de cuidado - [stomatitis: care instructions] yarauz Not available 10/16/2023 14:36:46 aprenda acerca d el peso saludable - [learning about healthy weight] yarauz Not available 10/16/2023 14:30:03 SBE teaching/handout Calcium in diet plus vitamin D daily exercise monitor diet see dentist every 6 months see shine worker every 1-2 years HIV testing recommendation condoms prn contraceptive options-pt menopausal new guidelines--pap with Hpv in 3-5 years--pelvic exam every year Mammogram yearly after age 40 Check B/P once yearly yarauz Not available 10/16/2023 14:20:28 Reason for Referral Software Integrator Referral for Screening for malignant neoplasm of colon Screening for malignant neoplasm of colon needs colonoscopy Referring Physician: Madi Lacy, Family Medicine, Encounter Date: 10/13/2022 Orthopedic Surgeon Referral for Patellar bursitis of left knee s/p fall Mar 2024, fluid to kneecap has not resolved Referring Physician: Bernadette Abdalla [facility], Encounter Date: 07/16/2024 Hand Plug Shaper Referral for Pain of left heel Referring Physician: Bernadette Barbero, Family Medicine, Encounter Date: 07/16/2024 Results Created Date Observation Date Name Description Value Unit Range Abnormal Flag Note LastModifiedBy Organization Detail LastModifiedTime 05/26/1905/28/2022 URINE CULTU RE, ROUTI NE urine culture, routine Final report Not Available [facility] ([facility]) [address] [facility], [place], [address], 05/28/2022 04:06:40 05/26/19 23 05/28/2022 URINE CULTU RE, ROUTI NE result 1 Commen t Mixed uroge nital memo Less than 10,00 0 colon ies/m L Not Available [facility] ([facility]) [address] [facility], [place], [address], 05/28/2022 04:06:40 05/26/19 23 05/26/2022 urina lysis , dipst ick Leukocytes Negati ve Not Available In-Office Order Internal Use Only DO Not Attach Compendium DO Not Attach Compendium, Do Not Delete/merge, [id number] 05/26/2022 14:21:21 05/26/19 23 05/26/2022 urina lysis , dipst ick Nitrite negati ve Not Available In-Office Order Internal Use Only DO Not Attach Compendium DO Not Attach Compendium, Do Not Delete/merge, [id number] 05/26/2022 14:21:21 05/26/19 23 05/26/2022 urina lysis , dipst ick Urobilinogen .2 Not Available In-Of fice Order Internal Use Only DO Not Attach Compendium DO Not Attach Compendium, Do Not Delete/merge, [id number] 05/26/2022 14:21:21 05/26/19 23 05/26/2022 urina lysis , dipst ick Protein Negati ve Not Available In-Office Order Internal Use Only DO Not Attach Compendium DO Not Attach Compendium, Do Not Delete/merge, [id number] 05/26/2022 14:21:21 05/26/19 23 05/26/2022 urina lysis , dipst ick pH 6.5 Not Available In-Office Order Internal Use Only DO Not Attach Compendium DO Not Attach Compendium, Do Not Delete/merge, 05/26/2022 14:21:05/26/1905/26/2022 urina lysis , dipst ick Blood Small Not Available In-Office Order Internal Use Only DO Not Attach Compendium DO Not Attach Compendium, Do Not Delete/merge, 05/26/2022 14:21:05/26/1905/26/2022 urina lysis , dipst ick Specific [place] 1.020 Not Available In-Off ice Order Internal Use Only DO Not Attach Compendium DO Not Attach Compendium, Do Not Delete/merge, 05/26/2022 14:21:05/26/1905/26/2022 urina lysis , dipst ick Ketone Negati ve Not Available In-Office Order Internal Use Only DO Not Attach Compendium DO Not Attach Compendium, Do Not Delete/merge, 05/26/2022 14:21:05/26/1905/26/2022 urina lysis , dipst ick Bilirubin Negati ve Not Available In-Office Order Internal Use Only DO Not Attach Compendium DO Not Attach Compendium, Do Not Delete/merge, 05/26/2022 14:21:05/26/1905/26/2022 urina lysis , dipst ick Glucose Negati ve Not Available In-Office Order Internal Use Only DO Not Attach Compendium DO Not Attach Compendium, Do Not Delete/merge, 05/26/2022 14:21:05/26/1905/26/2022 urina lysis , dipst ick Appearance Clear Not Available In-Offi ce Order Internal Use Only DO Not Attach Compendium DO Not Attach Compendium, Do Not Delete/merge, 05/26/2022 14:21:21 05/26/1905/26/2022 urina lysis , dipst ick Color Yellow Not Available In-Office Order Internal Use Only DO Not Attach Compendium DO Not Attach Compendium, Do Not Delete/merge, 05/26/2022 14:21:21 10/14/19 23 10/13/2022 LIPID PANEL cholesterol, total 195.4 mg/dL 140.0- 200.0 Not Available [facility] [address] [place] [address], [address], 10/13/2022 22:07:35 10/14/19 23 10/13/2022 LIPID PANEL triglyceride s 130 mg/dL <=150 Not Available [facility] [address] [place] [address], [address], 10/13/2022 22:07:35 10/14/19 23 10/13/2022 LIPID PANEL HDL cholesterol 47.8 mg/dL 40.0-1 00.0 Not Available [facility] [address] [place] [address], [address], 10/13/2022 22:07:35 10/14/19 23 10/13/2022 LIPID PANEL VLDL cholesterol patrick 26.00 mg/dL 5.00-4 0.00 Not Available [facility] [address] [place] [address], [address], 10/13/2022 22:07:35 10/14/19 23 10/13/2022 LIPID PANEL LDL chol calc ([facility]) 124.3 mg/dL 0.0-99 .0 above high normal Not Available [facility] [address] [place] [address], [address], 10/13/2022 22:07:35 10/14/19 23 10/14/2022 HEMOG LOBIN A1C hemoglobin A1C - % Test not perfo rmed. No laven melva top tube submi tted. Predi abete s: 5.7 - 6.4 Diabe asya: >6.4 Glyce daryl contr ol for adult s with diabe asya: <7.0 Not Available [facility] ([facility]) [address] [facility], [place], [address], 10/14/2022 17:08:49 10/14/19 23 10/16/2022 IGP, APTIM A HPV, RFX 16/18 ,45 HPV aptima NEGATI VE negati ve This nucle ic acid ampli ficat ion test detec ts fourt een high- risk HPV types (16,1 8,31, 33,35 ,39,4 5,51, 52,56 ,58,5 9,66, 68) witho ut diffe renti ation . Not Available [facility] ([facility]) [address] [facility], [place], [address], 10/17/2022 16:14:31 10/14/19 23 10/17/2022 IGP, APTIM A HPV, RFX 16/18 ,45 diagnosis: BRIAN Maddox NEGRONALD YOAN FOR INTRA EPITH ELIAL LESIO N OR GEOVANY FELDMAN . Not Available [facility] ([facility]) [address] [facility], [place], [address], 10/17/2022 16:14:31 10/14/19 23 10/17/2022 IGP, APTIM A HPV, RFX 16/18 ,45 specimen adequacy: BRIAN Maddox Satis facto ry for evalu ation . Endoc ervic al and/o r squam ous metap lasti c cells (endo cervi patrick compo nent) are prese nt. Not Available [facility] ([facility]) [address] [facility], [place], [address], 10/17/2022 16:14:31 10/14/19 23 10/17/2022 IGP, APTIM A HPV, RFX 16/18 ,45 clinician provided ICD10: BRIAN Maddox Z13.2 20 Z01.4 19 Not Available [facility] ([facility]) [address] [facility], [place], [address], 10/17/2022 16:14:31 10/14/19 23 10/17/2022 IGP, APTIM A HPV, RFX 16/18 ,45 performed by: BRIAN Burrell s, Cytot ciro maddox (ASCP ) Not Available [facility] ([facility]) [address] [place], [address], 10/17/2022 16:14:31 10/14/19 23 10/17/2022 IGP, APTIM A HPV, RFX 16/18 ,45 . . Not Available [facility] ([facility]) [address] [facility], [place], [address], 10/17/2022 16:14:31 10/14/19 23 10/17/2022 IGP, APTIM A HPV, RFX 16/18 ,45 note: COMMEN T The Pap smear is a scree priyanka test desig keith to aid in the detec tion of cortes ligna nt and malig nant condi tions of the uteri ne cervi x. It is not a diagn ostic proce dure and shoul d not be used as the sole means of detec ting cervi patrick cance r. Both false -posi tive and false -nega tive repor ts do occur . Not Available [facility] ([facility]) [address] [facility], [place], [address], 10/17/2022 16:14:31 10/14/19 23 10/17/2022 IGP, APTIM A HPV, RFX 16/18 ,45 test methodology: COMMEN T This liqui d based ThinP rep(R ) pap test was scree keith with the use of an image guide d systleo m. Not Available [facility] ([facility]) [address] [facility], [place], [address], 10/17/2022 16:14:31 10/14/19 23 10/17/2022 IGP, APTIM A HPV, RFX 16/18 ,45 HPV genotype reflex COMMEN T Crite micha not met, HPV Genot ype not perfo rmed. Not Available [facility] ([facility]) [address] [facility], [place], [address], 10/17/2022 16:14:31 10/14/19 23 10/14/2022 VITAM IN D, 25-HY DROXY vitamin D, 25-hydroxy 16.6 NG/mL 30.0-1 00.0 below low normal Vitam in D defic iency has been defin ed by the Insti tute of Medic ine and an Endoc rine Socie ty pract ice guide line as a level of serum 25-OH vitam in D less than 20 ng/mL (1,2) . The Endoc rine Socie ty went on to furth er defin e vitam in D insuf ficie ncy as a level betwe en 21 and 29 ng/mL (2). 1. IOM (Inst itute of Medic ine). 2010. Brii ry refer kedare lavell es for calci um and D. Giovany echols [place]: The [facility] . 2. Roland johnson [place], Isis garcia [place], Scott off-F errar i SANCHEZ, et al. Evalu ation , treat ment, and preve ntion of vitam in D defic iency : an Endoc rine Socie ty clini patrick pract ice guide line. JCEM. 2010; 96(7) :1911 -30. Not Available [facility] ([facility]) [address] [place], [address], 10/14/2022 17:08:50 10/14/19 23 10/14/2022 SPECI MEN STATU S REPOR T specimen status report TNP Test not perfo rmed. No laven melva top tube submi tted. TEST: [id number] Hemog lobin A1c Not Available [facility] ([facility]) [address] [place], [address], 10/14/2022 17:08:49 10/16/19 24 10/17/2023 COMP. METAB OLIC PANEL (14) glucose 92 mg/dL 70-99 Not Available [facility] ([facility]) [address] [place], [address], 10/17/2023 08:31:28 10/16/19 24 10/17/2023 COMP. METAB OLIC PANEL (14) BUN 10 mg/dL 6-24 Not Available [facility] ([facility]) [address] [place], [address], 10/17/2023 08:31:28 10/16/19 24 10/17/2023 COMP. METAB OLIC PANEL (14) creatinine 0.66 mg/dL 0.57-1 .00 Not Available [facility] ([facility]) [address] [place], [address], 10/17/2023 08:31:28 10/16/19 24 10/17/2023 COMP. METAB OLIC PANEL (14) eGFR 101 mL/mi n/1.7 3 >59 Not Available [facility] ([facility]) [address] [facility], [place], [address], 10/17/2023 08:31:28 10/16/19 24 10/17/2023 COMP. METAB OLIC PANEL (14) BUN/creatini ne ratio 15 9-23 Not Available [facility] ([facility]) [address] [place], [address], 10/17/2023 08:31:28 10/16/19 24 10/17/2023 COMP. METAB OLIC PANEL (14) sodium 140 mmol/ L 134-14 4 Not Available [facility] ([facility]) [address] [place], [address], 10/17/2023 08:31:28 10/16/19 24 10/17/2023 COMP. METAB OLIC PANEL (14) potassium 4.5 mmol/ L 3.5-5. 2 Not Available [facility] ([facility]) [address] [place], [address], 10/17/2023 08:31:28 10/16/19 24 10/17/2023 COMP. METAB OLIC PANEL (14) chloride 103 mmol/ L 96-106 Not Available [facility] ([facility]) [address] [place], [address], 10/17/2023 08:31:28 10/16/19 24 10/17/2023 COMP. METAB OLIC PANEL (14) carbon dioxide, total 21 mmol/ L Not Available [facility] ([facility]) [address] [place], [address], 10/17/2023 08:31:28 10/16/19 24 10/17/2023 COMP. METAB OLIC PANEL (14) calcium 9.4 mg/dL 8.7-10 .2 Not Available [facility] ([facility]) [address] [place], [address], 10/17/2023 08:31:28 10/16/19 24 10/17/2023 COMP. METAB OLIC PANEL (14) protein, total 6.8 g/dL 6.0-8. 5 Not Available [facility] ([facility]) [address] [place], [address], 10/17/2023 08:31:28 10/16/19 24 10/17/2023 COMP. METAB OLIC PANEL (14) albumin 4.5 g/dL 3.8-4. 9 Not Available [facility] ([facility]) [address] [place], [address], 10/17/2023 08:31:28 10/16/19 24 10/17/2023 COMP. METAB OLIC PANEL (14) globulin, total 2.3 g/dL 1.5-4. 5 Not Available [facility] ([facility]) [address] [place], [address], 10/17/2023 08:31:28 10/16/19 24 10/17/2023 COMP. METAB OLIC PANEL (14) A/G ratio 2.0 1.2-2. 2 Not Available [facility] ([facility]) [address] [place], [address], 10/17/2023 08:31:28 10/16/19 24 10/17/2023 COMP. METAB OLIC PANEL (14) bilirubin, total 0.3 mg/dL 0.0-1. 2 Not Available [facility] ([facility]) [address] [facility], [place], [address], 10/17/2023 08:31:28 10/16/19 24 10/17/2023 COMP. METAB OLIC PANEL (14) alkaline phosphatase 61 IU/L 44-121 Not Available [facility] ([facility]) [address] [facility], [place], [address], 10/17/2023 08:31:28 10/16/19 24 10/17/2023 COMP. METAB OLIC PANEL (14) AST (SGOT) 21 IU/L 0-40 Not Available [facility] ([facility]) [address] [facility], [place], [address], 10/17/2023 08:31:28 10/16/19 24 10/17/2023 COMP. METAB OLIC PANEL (14) ALT (SGPT) 14 IU/L 0-32 Not Available [facility] ([facility]) [address] [facility], [place], [address], 10/17/2023 08:31:28 10/16/19 24 10/17/2023 MICRO SCOPI C EXAMI NATIO N WBC None seen /hpf 0-5 Not Available [facility] ([facility]) [address] [facility], [place], [address], 10/17/2023 08:31:30 10/16/19 24 10/17/2023 MICRO SCOPI C EXAMI NATIO N RBC None seen /hpf 0-2 Not Available [facility] ([facility]) [address] [facility], [place], [address], 10/17/2023 08:31:30 10/16/19 24 10/17/2023 MICRO SCOPI C EXAMI NATIO N epithelial cells (non renal) None seen /hpf 0-10 Not Available [facility] ([facility]) [address] [facility], [place], [address], 10/17/2023 08:31:30 10/16/19 24 10/17/2023 MICRO SCOPI C EXAMI NATIO N casts None seen /lpf nonese en Not Available [facility] ([facility]) [address] [facility], [place], [address], 10/17/2023 08:31:30 10/16/19 24 10/17/2023 MICRO SCOPI C EXAMI NATIO N bacteria None seen nonese en/few Not Available [facility] ([facility]) [address] [facility], [place], [address], 10/17/2023 08:31:30 10/16/19 24 10/17/2023 TSH RFX ON ABNOR MAL TO FREE T4 TSH 1.470 uIU/m L 0.450- 4.500 Not Available [facility] ([facility]) [address] [facility], [place], [address], 10/17/2023 08:31:31 10/16/19 24 10/17/2023 VITAM IN B12 AND FOLAT E vitamin B12 483 pg/mL 232-12 45 Not Available [facility] ([facility]) [address] [facility], [place], [address], 10/17/2023 08:31:32 10/16/19 24 10/17/2023 VITAM IN B12 AND FOLAT E folate (folic acid), serum 15.2 NG/mL >3.0 A serum folat e lokesh ntrat ion of less than 3.1 ng/mL is consi dered to repre sent clini patrick defic iency . Not Available [facility] ([facility]) [address] [facility], [place], [address], 10/17/2023 08:31:32 10/16/19 24 10/17/2023 URINA LYSIS , COMPL ETE specific gravity 1.008 1.005- 1.030 Not Available [facility] ([facility]) [address] [place], [address], 10/17/2023 08:31:34 10/16/19 24 10/17/2023 URINA LYSIS , COMPL ETE pH 6.0 5.0-7. 5 Not Available [facility] ([facility]) [address] [place], [address], 10/17/2023 08:31:34 10/16/19 24 10/17/2023 URINA LYSIS , COMPL ETE urine-color YELLOW yellow Not Available [facility] ([facility]) [address] [facility], [place], [address], 10/17/2023 08:31:34 10/16/19 24 10/17/2023 URINA LYSIS , COMPL ETE appearance CLEAR clear Not Available [facility] ([facility]) [address] [facility], [place], [address], 10/17/2023 08:31:34 10/16/19 24 10/17/2023 URINA LYSIS , COMPL ETE WBC esterase NEGATI VE negati ve Not Available [facility] ([facility]) [address] [facility], [place], [address], 10/17/2023 08:31:34 10/16/19 24 10/17/2023 URINA LYSIS , COMPL ETE protein NEGATI VE negati ve/tra ce Not Available [facility] ([facility]) [address] [place], [address], 10/17/2023 08:31:34 10/16/19 24 10/17/2023 URINA LYSIS , COMPL ETE glucose NEGATI VE negati ve Not Available [facility] ([facility]) [address] [place], [address], 10/17/2023 08:31:34 10/16/19 24 10/17/2023 URINA LYSIS , COMPL ETE ketones NEGATI VE negati ve Not Available [facility] ([facility]) [address] [place], [address], 10/17/2023 08:31:34 10/16/19 24 10/17/2023 URINA LYSIS , COMPL ETE occult blood NEGATI VE negati ve Not Available [facility] ([facility]) [address] [place], [address], 10/17/2023 08:31:34 10/16/19 24 10/17/2023 URINA LYSIS , COMPL ETE bilirubin NEGATI VE negati ve Not Available [facility] ([facility]) [address] [facility], [place], [address], 10/17/2023 08:31:34 10/16/19 24 10/17/2023 URINA LYSIS , COMPL ETE urobilinogen ,semi-qn 0.2 mg/dL 0.2-1. 0 Not Available [facility] ([facility]) [address] [place], [address], 10/17/2023 08:31:34 10/16/19 24 10/17/2023 URINA LYSIS , COMPL ETE nitrite, urine NEGATI VE negati ve Not Available [facility] ([facility]) [address] [place], [address], 10/17/2023 08:31:34 10/16/19 24 10/17/2023 URINA LYSIS , COMPL ETE microscopic examination COMMEN T Micro scopi c follo ws if indic ated. Not Available [facility] ([facility]) [address] [place], [address], 10/17/2023 08:31:34 10/16/19 24 10/17/2023 URINA LYSIS , COMPL ETE microscopic examination SEE BELOW: Micro scopi c was indic ated and was perfo rmed. Not Available [facility] ([facility]) [address] [place], [address], 10/17/2023 08:31:34 10/16/19 24 10/17/2023 CBC, NO DIFFE RENTI AL/PL ATELE T WBC 6.0 x10e3 /uL 3.4-10 .8 Not Available [facility] ([facility]) [address] [facility], [place], [address], 10/17/2023 08:31:35 10/16/19 24 10/17/2023 CBC, NO DIFFE RENTI AL/PL ATELE T RBC 4.78 x10e6 /uL 3.77-5 .28 Not Available [facility] ([facility]) [address] [facility], [place], [address], 10/17/2023 08:31:35 10/16/19 24 10/17/2023 CBC, NO DIFFE RENTI AL/PL ATELE T hemoglobin 13.9 g/dL 11.1-1 5.9 Not Available [facility] ([facility]) [address] [place], [address], 10/17/2023 08:31:35 10/16/19 24 10/17/2023 CBC, NO DIFFE RENTI AL/PL ATELE T hematocrit 41.5 % 34.0-4 6.6 Not Available [facility] ([facility]) [address] [place], [address], 10/17/2023 08:31:35 10/16/1910/17/2023 CBC, NO DIFFE RENTI AL/PL ATELE T MCV 87 fL 79-97 Not Available [facility] ([facility]) [address] [place], [address], 10/17/2023 08:31:35 10/16/19 24 10/17/2023 CBC, NO DIFFE RENTI AL/PL ATELE T MCH 29.1 pg 26.6-3 3.0 Not Available [facility] ([facility]) [address] [facility], [place], [address], 10/17/2023 08:31:35 10/16/19 24 10/17/2023 CBC, NO DIFFE RENTI AL/PL ATELE T MCHC 33.5 g/dL 31.5-3 5.7 Not Available [facility] ([facility]) [address] [facility], [place], [address], 10/17/2023 08:31:35 10/16/19 24 10/17/2023 CBC, NO DIFFE RENTI AL/PL ATELE T RDW 13.5 % 11.7-1 5.4 Not Available [facility] ([facility]) [address] [facility], [place], [address], 10/17/2023 08:31:35 10/16/19 24 10/17/2023 VITAM IN D, 25-HY DROXY vitamin D, 25-hydroxy 15.7 NG/mL 30.0-1 00.0 below low normal Vitam in D defic iency has been defin ed by the Insti tute of Medic ine and an Endoc rine Socie ty pract ice guide line as a level of serum 25-OH vitam in D less than 20 ng/mL (1,2) . The Endoc rine Socie ty went on to furth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 in 2027Last mammogram 11/16/2022 BIRADS 1colonosco py UTD needs repeat in 5 years (2027)STD screen done will treat accordingl ySelf breast examcalciu m rich foods handoutvit giraldo D 1000 iu dailyexerc ise 40-50 minutes 4-5 days per weekweight lossdietPH Q 2-9 negGAD-7 negpatient refuses RPR and HIV testing Body mass index 25-29 - overweight 980521048 Z68.26 BMI 26.1 Healthy weight range 115-152 Overweight 332775728 E66 .3 BMI 26.1 Healthy weight range 115-152 Screening for malignant neoplasm of breast 363533873 Z12.31 Last mammogram 11/16/2022 BIRADS 1 Postmenopausal state 764 37852 Z78.0 Last menses 05-14-2014 Screening for malignant neoplasm of colon 752509384 Z12.11 Had colonoscop y on 12/21/2022 showed colon polyp repeat in 5 years Former lig ht tobacco smoker [id number] 81311 Z87.891 quit 3-4 years ago Migraine with aura 50201 06 G43.109 stable for now Mixed hyperlipidemia 267 666608 E78.2 10/13/2021 cho 213Trig 144HDL 52LDL 135 10/13/2022 cho 195.4trig 130HDL 47LDL 124.3Avoid all breads, potatoes, cereal, pasta, rice, margarine, refined sugars, milk yogurt, ice cream, juices, soda (including diet), beer, and manmade or manufactur ed desserts. Enjoy steak, fish, chicken (no skin), pork, butter, vegetables , beans, nuts, whole eggs, cheese (low fat or skim), cream in your coffee. Vitamin D deficiency 347 99673 E55.9 Vitamin D 16.6Start Rx Vitamin D2 20871 IU once weekly for 12 weeksonce you complete RX buy otc vitamin D3 1000 IU once daily Depression screening 171 210171 Z13.31 negative Stomatitis 34147451 K12. 1 Fatigue 12390035 R53.83 Administra tion of diphtheria, pertussis, and tetanus vaccine 606439896 Z23 Last Tdap 02/17/2024 [id number] MIGUEL ÁNGEL SALDANA [facility] [address] [place] [address] 07/16/2024 14:03:35 07/16/2024 14:39:36 Pain of left knee joint 9757799054 19933 M25.562 fell 2 months ago and landed with L leg/knee twisted under herhas had bump/swell ing to knee cap sincepain with pressing on L knee cap and kneelingPE x- prepatella r bursitis to L knee 2 cm x 2 cm, FROM L knee jointorder ed XR Patellar b ursitis of left knee [id number] 377529 M70.52 refer to Ortho Pain of left heel 270816 3987 724722 M79.672 chronicfla res from time to [facility] pod[facility] and had steroid injections improvemen t with wearing flat shoesPEx- mild TTP L heelrefer back to podiatryc/ w OTC txs Health Concerns Section Related Observation LastModified by Organization Detai ls LastModified Time None Recorded Concern Status LastModified by Organization Details LastModified Time None Recorded Advance Directives Directive N: Payers Encounter Date Sequence Insurance Name Policy Number Policy Man Covered Member ID Man Member ID Guarantor Name 05/26/2022 2 R [id number] Isrrael Gonzales [id number] Violeta Gonzales 08/29/2022 2 UMR [id number] Isrrael Gonzales [id number] iVoleta Gonzales 10/13/2022 2 UMR [id number] Isrrael Gonzales [id number] Violeta Gonzales 10/16/2023 2 *SELF PAY* Betty Gonzales 07/16/2024 2 *SELF PAY* Betty Gonzales 07/16/2024 1 [facility] ([place] [id number] Violeta Gonzales [id number] Violeta Gonzales Notes Date Note Type Note Provider Name and Address Organization Details Recorded Time 05/26/2022 text/html Abdominal PainReported bypatient.Location:[facility] Q Quality:pain;bloating ;burning;fullness;ten melva Severity:moderate; pain level 5/10 Duration:intermittent Onset/Timing:sudden; wax/wane Modifying Factors:nothing gives relief; belching Associated Symptoms:no fever; no chills; no shortness of breath;blood in the urine;heartburn;nause a Other:denies possible ; sexually active; menopausal 56 y/o HF presents for c/o L lower abd discomfort with urinary frequency off and on for about 3 weeks. She feels bloated. Had a BM yesterday none today. She has been burping a lot as well/ She tried using some pepcid helps a little. She has been taking ibuprofen which she now has ran out of. She continues to have some shoulder discomfort since having rotator cuff surgery 6 months ago. Reports a light episode of vaginal bleeding after sexual activity a few weeks ago. DICK Browning Attn: Accounting[address] [place], [address], [facility] 05/26/2022 17:56:36 08/29/2022 text/html EaracheReported bypatient.Severity:wo rsening Timing:sudden Context:no sick contacts; no recent swimming/water in ear; no head trauma; not grinding teeth; no recent air travel;exposure to second hand smoke Modifying Factors:does not hurt to lie on, or pull on ear; does not hurt to chew;hurts to chew Associated Symptoms:no discharge from the ears;hearing loss;nose/sinus problems;popping noise in the ears;ringing in the ears DICK Browning Attn: Accounting[address] [place], [address], [facility] 08/29/2022 17:35:39 10/13/2022 text/html Annual GYNReport ed bypatient.History:no gynecologic complaints; no change in interval history (had rotator cuff surgery) Menstrual cycle:menopause 2013 Urinary symptoms:No hematuria; No incontinence Vulva:No genital lesion Vagina:Normal vaginal discharge Breast:No breast pain; No breast lump; No nipple discharge Current Contraception:Monogam ous relationship; menopause Sexual complaints:No sexual complaints; No pain during intercourse; Normal libido Menopausal Symptoms:No menopausal symptoms; Normal vaginal lubrication Psychological symptoms:No depression; No anxiety; No PMDD Preventive measures:Encourage self breast examination; Encourage regular exercise; Encourage no tobacco use; Followed with Q3 year pap smear and high risk HPV typing; Needs to schedule mammogram; Needs to schedule colonoscopy; needed repeat colonoscopy [id number] to referral now 57 y/o HF [id number] here for well woman exam. SHe has quit smoking 5 cigs daily about 4 years ago.T he patient agrees to referral for colonoscopy now. She voices she did not follow thru on additional imaging of R breast last year secondary to having rotator cuff surgery. She reports she has not felt any masses on breasts. DICK Browning Attn: Accounting[address] [place], [address], [facility] 10/13/2022 14:30:42 10/16/2023 text/html Annual GYNReport ed bypatient.History:no gynecologic complaints; no change in interval history (had rotator cuff surgery) Menstrual cycle:menopause 2013 Urinary symptoms:No hematuria; No incontinence Vulva:No genital lesion Vagina:Normal vaginal discharge Breast:No breast pain; No breast lump; No nipple discharge Current Contraception:Monogam ous relationship; menopause Sexual complaints:No sexual complaints; No pain during intercourse; Normal libido Menopausal Symptoms:No menopausal symptoms; Normal vaginal lubrication Psychological symptoms:No depression; No anxiety; No PMDD Preventive measures:Encourage self breast examination; Encourage regular exercise; Encourage no tobacco use; Followed with Q3 year pap smear and high risk HPV typing; Needs to schedule mammogram; Needs to schedule colonoscopy; needed repeat colonoscopy [id number] to referral now 57 y/o HF [id number] here for well woman exam. SHe has quit smoking 5 cigs daily about 5 years ago. She feels a little tired. She has urinary frequency. She has been having polydipsia. 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 Admits that wearing flat shoes helps with heel pain, but flat shoes cause her to have low back pain. Pt has been using ice and rolling out L heel with frozen water bottle. MIGUEL ÁNGEL SALDANA Attn: Accounting[address] [facility], [place], [address], [place] [facility] 07/16/2024 16:04:25 OBGyn Episode Ob Episode Information Episode Created Date Number of Fetuses Patient Bloodtype Patient rh Status Prepregnancy Weight lbs Domestic Partner Domestic Partner Phone Father Name Supervisor Stripping Status 04/02/20 18 1 CLOSED Fetus Data First Name Last Name Admitted to NICU Weight (g) Sex Living Outcome Pediatric Complications Fetus ID Race Codes Race Delivery Type M Full Term [id number] Vaginal Mitchel Calculation Initial Mitchel Date Initial Exam Date Initial Exam Provider Initial Ultrasound Date Last Menstrual Period Date Ultra Sound Weeks Gestation 0 Eighteen To Twenty Week Mitchel Update Ultra Sound Date Fundal Height At Umbil Quickening Date Ultra Sound Latest Weeks Gestation Final Mitchel Confirmed By Final Mitchel Confirmed Date Final Micthel Date Ultra Sound Latest Days Gestation 0 0 Menstrual History Last Menstrual Date Menses Monthly On Bcp Conception Prior Menses Frequency Hcg Plus Date Menarche Onset Age Delivery Information Delivery Date Delivery Type Labor Anesthesia Weeks Gestation Incision Type Labor Labor Length Hrs Delivered By Post Complications Tubal Sterilization Discharge Date Comments 8 37 false Discharge Information Feeding Method Contraceptive Method Maternal HG B and HCT Levels Ob Episode Information Episode Created Date Number of Fetuses Patient Bloodtype Patient rh Status Prepregnancy Weight lbs Domestic Partner Domestic Partner Phone Father Name Supervisor Stripping Status 04/02/20 18 1 CLOSED Fetus Data First Name Last Name Admitted to NICU Weight (g) Sex Living Outcome Pediatric Complications Fetus ID Race Codes Race Delivery Type F Full Term [id number] Vaginal Mitchel Calculation Initial Mitchel Date Initial Exam Date Initial Exam Provider Initial Ultrasound Date Last Menstrual Period Date Ultra Sound Weeks Gestation 0 Eighteen To Twenty Week Mitchel Update Ultra Sound Date Fundal Height At Umbil Quickening Date Ultra Sound Latest Weeks Gestation Final Mitchel Confirmed By Final Mitchel Confirmed Date Final Mitchel Date Ultra Sound Latest Days Gestation 0 0 Menstrual History Last Menstrual Date Menses Monthly On Bcp Conception Prior Menses Frequency Hcg Plus Date Menarche Onset Age Delivery Information Delivery Date Delivery Type Labor Anesthesia Weeks Gestation Incision Type Labor Labor Length Hrs Delivered By Post Complications Tubal Sterilization Discharge Date Comments 0 40 Discharge Information Feeding Method Contraceptive Method Maternal HG B and HCT Levels
== END 2024-07-16 14:18 | disposition home or self-care (01) ==
PROVIDERS: PCP Registered Nurse; Visit Provider Physician Assistant
DX: M25.562 Pain in left knee (principal)
CPT/HCPCS: 73562

== ENCOUNTER 2025-05-13 09:37 | Outpatient (CLI) | payer BC, SELFPAY ==
--- NOTE | ~2025-05-13 | MM_ITS ---
EXAMINATION: MM screening barrie BI w daljit HISTORY: Screening TECHNIQUE: Craniocaudal and mediolateral oblique 3-D tomosynthesis images were obtained and synthetic 2-D images were generated. CAD analysis was submitted and interpreted. COMPARISON: 2023, 2022, and 2021 BREAST PARENCHYMAL COMPOSITION: The breast tissue is heterogeneously dense, which may obscure small masses. FINDINGS: There are findings consistent with the known breast cysts. No suspicious masses are seen. There are no suspicious calcifications. No unexplained architectural distortion is seen. There are no skin or nipple abnormalities identified. There is no adenopathy seen on the images submitted. IMPRESSION: No mammographic evidence to suggest malignancy is seen. The patient may return to screening mammography as per ACR guidelines. BI-RADS 2 - Benign. Reviewed, dictated and finalized at location C. FACTURING TEST ENGINEER
--- OUTSIDE RECORDS SUMMARY | 2025-05-13 09:45 | XMS_ITS | Data Portability ---
Author Organization [facility] ANDRZEJLo Gomez Address [address] [place] [address] Care Team Providers Care Medical Affairs Manager Name Role Phone MADI LACY Primary Care Provider JESSICA CAIN Orthopedic Surgeon JOSE VIRK Optimization Analyst Assessment No assessment recorded. Plan of Treatment Reminders Order Date Submit Date Provider Last Modified By Organization Details Last Modified Time Details Appointments None recorde d. Lab vaginal pathoge ns panel, COREY+pro be, vaginal fluid 2024 025 [facility], [facility][note 3][address] [facility], [address], [place], [address], 5 04:43:51 vitamin D, 25-hydr oxy, total, serum 2024 025 [facility], [address] [place] [address], [address], [place], [address], 5 07:13:11 cobalam in and folate panel, serum 2024 025 [facility], [facility][note 3]7 [facility], [address], [place], [address], 5 11:32:29 TSH + free T4, serum 2024 025 [facility], [address] [facility], [address], [place], [address], 5 11:32:29 CBC 2024 025 [facility], [address], [address], [place], [address], 5 11:32:30 vaginal pathoge ns panel, COREY+pro be, vaginal fluid 2023 024 [facility], [address], [address], [place], [address], 4 06:23:25 vitamin B12 + folate, serum or blood 2023 024 [facility], [address], [address], [place], [address], 4 08:31:32 TSH, ultra-s ensitiv e, serum 2023 024 [facility], [address], [address], [place], [address], 4 08:31:31 CMP, serum or plasma 2023 024 [facility], [address], [address], [place], [address], 4 08:31:28 urinaly sis, complet e 2023 024 [facility], [address], [address], [place], [address], 4 08:31:34 CBC 2023 024 [facility], [address], [address], [place], [address], 4 08:31:35 HbA1c (hemogl obin A1c), blood 2023 024 [facility] In-Office Order, Internal Use Only DO Not Attach Compendium DO Not Attach Compendium, Do Not Delete/merge, [id number] 4 15:05:23 vitamin D, 25-hydr oxy, total, serum 2023 024 [facility], [address] [place] [address], [address], [place], [address], 4 08:31:37 vitamin D, 25-hydr oxy, total, serum 2022 023 [facility], [address] [place] [address], [address], [place], [address], 3 17:08:50 lipid panel, serum 2022 023 [facility], [address] [place] [address], [address], [place], [address], 3 22:07:35 cytolog y report, thin prep, smear or scrapin g, cervica l or vaginal 2022 023 [facility], [address] [place] [address], [address], [place], [address], 3 16:14:31 Referral orthope dic surgeon referra l 2024 025 [email or web address] Jessica Cain MD, [address] [facility] [address], [place], [address], 5 08:09:22 podiatr ist referra l 2024 025 [email or web address] Lala Weaver [facility], [address], [address], [place], [address], 5 08:00:08 gastroe nterolo gist referra l - needs colonos copy 2022 023 [facility] Jose simmons MD, [address], [address], [place], [address], 3 09:05:06 Procedures None recorde d. Surgeries None recorde d. Imaging MAMMO, screeni ng, bilater al 2024 025 [facility], [address], [place], [address], 5 10:58:01 XR, knee, 3 view 2024 025 [facility] ([facility]), [address], [place], [address], 5 16:26:47 MAMMO, diagnos tic, digital , bilater al 2022 023 [facility], [address], [address], [place], [address], 3 12:53:33 Medication Orders Vitamin D2 1,250 mcg (50,000 unit) capsule 2024 025 [facility], [address] [place], [address], 5 14:55:42 flutica sone propion ate 50 mcg/act uation nasal spray,s uspensi on 2024 025 [facility], [address] [place], [address], 5 14:50:12 amoxici llin 875 mg tablet 2024 025 [facility], [address] [place], [address], 5 05:01:51 Vitamin D2 1,250 mcg (50,000 unit) capsule 2023 024 [facility], [address] [place], [address], 14:28:00 Patient TargetsNo targets recorded. 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 HIV testing recommendation condoms prn contraceptive options-pt menopausal new guidelines--pap with Hpv in 3-5 years--pelvic exam every year Mammogram yearly after age 40 Check B/P once yearly yarauz Not available 10/13/2022 11:04:57 10/16/2023 [id number] A healthy lifestyle: care instructions yarauz Not [...] diet see dentist every 6 months 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 HIV testing recommendation condoms prn contraceptive options-pt menopausal new guidelines--pap with Hpv in 3-5 years--pelvic exam every year Mammogram yearly after age 40 Check B/P once yearly yarauz Not available 10/16/2023 14:20:28 11/12/2024 [id number] aprenda sobre resultados anormales de pruebas auditivas - [learning about abnormal hearing test results] yarauz Not available 11/12/2024 15:00:40 hearing screening* [facility] Not availab le 11/12/2024 15:16:22 medical record request* myron Not available 11/12/2024 15:15:58 insurance will want for pt to go to PT for knee pain-pt resuses check with ortho if MRI L knee was ordered recommend flat shoes/inserts may use ibuprofen prn yarauz Not available 11/12/2024 14:53:23 12/19/2024 [id number] SBE teaching/handout Calcium in diet plus vitamin D daily exercise monitor diet see dentist every 6 months 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 HIV testing recommendation condoms prn contraceptive options-pt menopausal new guidelines--pap with Hpv in 3-5 years--pelvic exam every year Mammogram yearly Check B/P once yearly yarauz Not available 12/19/2024 14:47:59 Reason for Referral Optimization Analyst Referral for Screening for malignant neoplasm of colon Screening for malignant neoplasm of colon needs colonoscopy Referring Physician: [facility], Encounter Date: 10/13/2022 Orthopedic Surgeon Referral for Patellar bursitis of left knee s/p fall Mar 2024, fluid to kneecap has not resolved Referring Physician: Bernadette Abdalla [facility], Encounter Date: 07/16/2024 Supplier Quality Specialist Referral for Pain of left heel Referring Physician: Bernadette Abdalla [facility], Encounter Date: 07/16/2024 Results Created Date Observation Date Name Description Value Unit Range Abnormal Flag Note LastModifiedBy Organization Detail LastModifiedTime 10/14/19 23 10/13/2022 LIPID PANEL cholesterol, total 195.4 mg/dL 140.0- 200.0 Not Available [facility] [address] [place], [address], 10/13/2022 22:07:35 10/14/19 23 10/13/2022 LIPID PANEL triglyceride s 130 mg/dL <=150 Not Available [facility] [address] [place], [address], 10/13/2022 22:07:35 10/14/19 23 10/13/2022 LIPID PANEL HDL cholesterol 47.8 mg/dL 40.0-1 00.0 Not Available [facility] [address] [place], [address], 10/13/2022 22:07:35 10/14/19 23 10/13/2022 LIPID PANEL VLDL cholesterol patrick 26.00 mg/dL 5.00-4 0.00 Not Available [facility] [address] [place], [address], 10/13/2022 22:07:35 10/14/19 23 10/13/2022 LIPID PANEL LDL chol calc ([facility]) 124.3 mg/dL 0.0-99 .0 above high normal Not Available [facility] [address] [place], [address], 10/13/2022 22:07:35 10/14/19 23 10/14/2022 HEMOG LOBIN A1C hemoglobin A1C - % Test not perfo rmed. No laven melva top tube submi tted. Predi abete s: 5.7 - 6.4 Diabe asya: >6.4 Glyce daryl contr ol for adult s with diabe asya: <7.0 Not Available [facility] ([facility]) [address] [facility], [place], [address], 10/14/2022 17:08:49 10/14/19 23 10/16/2022 IGP, APTIM A HPV, RFX 16/18 ,45 HPV aptima NEGATI VE negati ve This nucle ic acid ampli ficat ion test detec ts fourt een high- risk HPV types (16,1 8,31, 33,35 ,39,4 5,51, 52,56 ,58,5 9,66, 68) witho ut diffe renti ation . Not Available [facility] ([facility]) [address] [facility], [place], [address], 10/17/2022 16:14:31 10/14/19 23 10/17/2022 IGP, APTIM A HPV, RFX 16/18 ,45 diagnosis: BRIAN T CAITLIN MILTON FOR INTRA EPITH ELIAL LESIO N OR GEOVANY FELDMAN . Not Available [facility] ([facility]) [address] [place], [address], 10/17/2022 16:14:31 10/14/19 23 10/17/2022 IGP, APTIM A HPV, RFX 16/18 ,45 specimen adequacy: BRIAN T Satis facto ry for evalu ation . Endoc ervic al and/o r squam ous metap lasti c cells (endo cervi patrick compo nent) are prese nt. Not Available [facility] ([facility]) [address] [place], [address], 10/17/2022 16:14:31 10/14/19 23 10/17/2022 IGP, APTIM A HPV, RFX 16/18 ,45 clinician provided ICD10: BRIAN Maddox Z13.2 20 Z01.4 19 Not Available [facility] ([facility]) [address] [place], [address], 10/17/2022 16:14:31 10/14/19 23 10/17/2022 IGP, APTIM A HPV, RFX 16/18 ,45 performed by: Rosanna Ramírez (ASCP ) Not Available [facility] ([facility]) [address] [place], [address], 10/17/2022 16:14:31 10/14/19 23 10/17/2022 IGP, APTIM A HPV, RFX 16/18 ,45 . . Not Available [facility] ([facility]) [address] [place], [address], 10/17/2022 16:14:31 10/14/19 23 10/17/2022 IGP, APTIM [...] ts do occur . Not Available [facility] ([facility]) [address] [place], [address], 10/17/2022 16:14:31 10/14/19 23 10/17/2022 IGP, APTIM A HPV, RFX 16/18 ,45 test methodology: COMMEN T This liqui d based ThinP rep(R ) pap test was scree keith with the use of an image guide d syste m. Not Available [facility] ([facility]) [address] [place], [address], 10/17/2022 16:14:31 10/14/19 23 10/17/2022 IGP, APTIM A HPV, RFX 16/18 ,45 HPV genotype reflex COMMEN T Crite micha not met, HPV Genot ype not perfo rmed. Not Available [facility] ([facility]) [address] [place], [address], 10/17/2022 16:14:31 10/14/19 23 10/14/2022 VITAM IN D, 25-HY DROXY vitamin D, 25-hydroxy 16.6 NG/mL 30.0-1 00.0 below low normal Vitam in D defic iency has been defin ed by the Insti tute of Medic ine and an Endoc carlota Zapien ty pract ice guide line as a level of serum 25-OH vitam in D less than 20 ng/mL (1,2) . The Endoc nikhile Socileo ty went on to furth er defin e vitam in D insuf ficie ncy as a level betwe en 21 and 29 ng/mL (2). 1. IOM (Inst itute of Medic ine). 2010. Dieta ry refer ence lavell es for calci um and DDada echols [place]: The [facility] Press . 2. Holic k MF, Binkl ey [place], Bisch off-F errar i SANCHEZ, et al. Evalu ation , treat ment, and preve ntion of vitam in D defic iency : an Endoc rine Socie ty clini patrick pract ice guide line. JCEM. 2010; 96(7) :1911 -30. Not Available [facility] ([facility]) [address] [place], [address], 10/14/2022 17:08:50 10/14/19 23 10/14/2022 SPECI MEN STATU S REPOR T specimen status report TNP Test not perfo rmed. No laven melva top tube submi tted. TEST: 61002 3 Hemog lobin A1c Not Available [facility] ([facility]) [address] [place], [address], 10/14/2022 17:08:49 10/16/19 24 10/17/2023 COMP. METAB OLIC PANEL (14) glucose 92 mg/dL 70-99 Not Available [facility] ([facility]) [address] [place], [address], 10/17/2023 08:31:28 10/16/19 24 10/17/2023 COMP. METAB OLIC PANEL (14) BUN 10 mg/dL 6-24 Not Available [facility] ([facility]) [address] [place], [address], 10/17/2023 08:31:28 10/16/19 24 10/17/2023 COMP. METAB OLIC PANEL (14) creatinine 0.66 mg/dL 0.57-1 .00 Not Available [facility] ([facility]) [address] [place], [address], 10/17/2023 08:31:28 10/16/19 24 10/17/2023 COMP. METAB OLIC PANEL (14) eGFR 101 mL/mi n/1.7 3 >59 Not Available [facility] ([facility]) [address] [facility], [place], [address], 10/17/2023 08:31:28 10/16/19 24 10/17/2023 COMP. METAB OLIC PANEL (14) BUN/creatini ne ratio 15 9-23 Not Available [facility] ([facility]) [address] [facility], [place], [address], 10/17/2023 08:31:28 10/16/19 24 10/17/2023 COMP. METAB OLIC PANEL (14) sodium 140 mmol/ L 134-14 4 Not Available [facility] ([facility]) [address] [facility], [place], [address], 10/17/2023 08:31:28 10/16/19 24 10/17/2023 COMP. METAB OLIC PANEL (14) potassium 4.5 mmol/ L 3.5-5. 2 Not Available [facility] ([facility]) [address] [facility], [place], [address], 10/17/2023 08:31:28 10/16/19 24 10/17/2023 COMP. METAB OLIC PANEL (14) chloride 103 mmol/ L 96-106 Not Available [facility] ([facility]) [address] [facility], [place], [address], 10/17/2023 08:31:28 10/16/19 24 10/17/2023 COMP. METAB OLIC PANEL (14) carbon dioxide, total 21 mmol/ L 20-29 Not Available [facility] ([facility]) [address] [facility], [place], [address], 10/17/2023 08:31:28 10/16/19 24 10/17/2023 COMP. METAB OLIC PANEL (14) calcium 9.4 mg/dL 8.7-10 .2 Not Available [facility] ([facility]) [address] [facility] [place], [address], 10/17/2023 08:31:28 10/16/19 24 10/17/2023 COMP. METAB OLIC PANEL (14) protein, total 6.8 g/dL 6.0-8. 5 Not Available [facility] ([facility]) [address] [facility] [place], [address], 10/17/2023 08:31:28 10/16/19 24 10/17/2023 COMP. METAB OLIC PANEL (14) albumin 4.5 g/dL 3.8-4. 9 Not Available [facility] ([facility]) [address] [facility] [place], [address], 10/17/2023 08:31:28 10/16/19 24 10/17/2023 COMP. METAB OLIC PANEL (14) globulin, total 2.3 g/dL 1.5-4. 5 Not Available [facility] ([facility]) [address] [facility] [place], [address], 10/17/2023 08:31:28 10/16/19 24 10/17/2023 COMP. METAB OLIC PANEL (14) A/G ratio 2.0 1.2-2. 2 Not Available [facility] ([facility]) [address] [facility] [place], [address], 10/17/2023 08:31:28 10/16/19 24 10/17/2023 COMP. METAB OLIC PANEL (14) bilirubin, total 0.3 mg/dL 0.0-1. 2 Not Available [facility] ([facility]) [address] [facility] [place], [address], 10/17/2023 08:31:28 10/16/19 24 10/17/2023 COMP. METAB OLIC PANEL (14) alkaline phosphatase 61 IU/L 44-121 Not Available [facility] ([facility]) [address] [facility], [place], [address], 10/17/2023 08:31:28 10/16/19 24 10/17/2023 COMP. METAB OLIC PANEL (14) AST (SGOT) 21 IU/L 0-40 Not Available [facility] ([facility]) [address] [facility], [place], [address], 10/17/2023 08:31:28 10/16/19 24 10/17/2023 COMP. METAB OLIC PANEL (14) ALT (SGPT) 14 IU/L 0-32 Not Available [facility] ([facility]) [address] [facility], [place], [address], 10/17/2023 08:31:28 10/16/19 24 10/17/2023 MICRO SCOPI C EXAMI NATIO N WBC None seen /hpf 0-5 Not Available [facility] ([facility]) [address] [facility], [place], [address], 10/17/2023 08:31:30 10/16/19 24 10/17/2023 MICRO SCOPI C EXAMI NATIO N RBC None seen /hpf 0-2 Not Available [facility] ([facility]) [address] [facility], [place], [address], 10/17/2023 08:31:30 10/16/19 24 10/17/2023 MICRO SCOPI C EXAMI NATIO N epithelial cells (non renal) None seen /hpf 0-10 Not Available [facility] ([facility]) [address] [facility], [place], [address], 10/17/2023 08:31:30 10/16/19 24 10/17/2023 MICRO SCOPI C EXAMI NATIO N casts None seen /lpf nonese en Not Available [facility] ([facility]) [address] [facility], [place], [address], 10/17/2023 08:31:30 10/16/19 24 10/17/2023 MICRO SCOPI C EXAMI NATIO N bacteria None seen nonese en/few Not Available [facility] ([facility]) [address] [facility], [place], [address], 10/17/2023 08:31:30 10/16/19 24 10/17/2023 TSH RFX ON ABNOR MAL TO FREE T4 TSH 1.470 uIU/m L 0.450- 4.500 Not Available [facility] ([facility]) [address] [facility], [place], [address], 10/17/2023 08:31:31 10/16/19 24 10/17/2023 VITAM IN B12 AND FOLAT E vitamin B12 483 pg/mL 232-12 45 Not Available [facility] ([facility]) [address] [facility], [place], [address], 10/17/2023 08:31:32 10/16/19 24 10/17/2023 VITAM IN B12 AND FOLAT E folate (folic acid), serum 15.2 NG/mL >3.0 A serum folat e lokesh ntrat ion of less than 3.1 ng/mL is consi dered to repre sent clini patrick defic iency . Not Available [facility] ([facility]) [address] [place], [address], 10/17/2023 08:31:32 10/16/1910/17/2023 URINA LYSIS , COMPL ETE specific gravity 1.008 1.005- 1.030 Not Available [facility] ([facility]) [address] [place], [address], 10/17/2023 08:31:34 10/16/19 24 10/17/2023 URINA LYSIS , COMPL ETE pH 6.0 5.0-7. 5 Not Available [facility] ([facility]) [address] [place], [address], 10/17/2023 08:31:34 10/16/19 24 10/17/2023 URINA LYSIS , COMPL ETE urine-color YELLOW yellow Not Available [facility] ([facility]) [address] [facility], [place], [address], 10/17/2023 08:31:34 10/16/19 24 10/17/2023 URINA LYSIS , COMPL ETE appearance CLEAR clear Not Available [facility] ([facility]) [address] [facility], [place], [address], 10/17/2023 08:31:34 10/16/19 24 10/17/2023 URINA LYSIS , COMPL ETE WBC esterase NEGATI VE negati ve Not Available [facility] ([facility]) [address] [place], [address], 10/17/2023 08:31:34 10/16/19 24 10/17/2023 URINA LYSIS , COMPL ETE protein NEGATI VE negati ve/tra ce Not Available [facility] ([facility]) [address] [facility], [place], [address], 10/17/2023 08:31:34 10/16/19 24 10/17/2023 URINA LYSIS , COMPL ETE glucose NEGATI VE negati ve Not Available [facility] ([facility]) [address] [place], [address], 10/17/2023 08:31:34 10/16/19 24 10/17/2023 URINA LYSIS , COMPL ETE ketones NEGATI VE negati ve Not Available [facility] ([facility]) [address] [place], [address], 10/17/2023 08:31:34 10/16/19 24 10/17/2023 URINA LYSIS , COMPL ETE occult blood NEGATI VE negati ve Not Available [facility] ([facility]) [address] [place], [address], 10/17/2023 08:31:34 10/16/19 24 10/17/2023 URINA LYSIS , COMPL ETE bilirubin NEGATI VE negati ve Not Available [facility] ([facility]) [address] [facility], [place], [address], 10/17/2023 08:31:34 10/16/19 24 10/17/2023 URINA LYSIS , COMPL ETE urobilinogen ,semi-qn 0.2 mg/dL 0.2-1. 0 Not Available [facility] ([facility]) [address] [facility], [place], [address], 10/17/2023 08:31:34 10/16/19 24 10/17/2023 URINA LYSIS , COMPL ETE nitrite, urine NEGATI VE negati ve Not Available [facility] ([facility]) [address] [facility], [place], [address], 10/17/2023 08:31:34 10/16/19 24 10/17/2023 URINA LYSIS , COMPL ETE microscopic examination COMMEN T Micro scopi c follo ws if indic ated. Not Available [facility] ([facility]) [address] [facility], [place], [address], 10/17/2023 08:31:34 10/16/19 24 10/17/2023 URINA LYSIS , COMPL ETE microscopic examination SEE BELOW: Micro scopi c was indic ated and was perfo rmed. Not Available [facility] ([facility]) [address] [place], [address], 10/17/2023 08:31:34 10/16/19 24 10/17/2023 CBC, NO DIFFE RENTI AL/PL ATELE T WBC 6.0 x10e3 /uL 3.4-10 .8 Not Available [facility] ([facility]) [address] [place], [address], 10/17/2023 08:31:35 10/16/19 24 10/17/2023 CBC, NO DIFFE RENTI AL/PL ATELE T RBC 4.78 x10e6 /uL 3.77-5 .28 Not Available [facility] ([facility]) [address] [place], [address], 10/17/2023 08:31:35 10/16/1910/17/2023 CBC, NO DIFFE RENTI AL/PL ATELE T hemoglobin 13.9 g/dL 11.1-1 5.9 Not Available [facility] ([facility]) [address] [place], [address], 10/17/2023 08:31:35 10/16/19 24 10/17/2023 CBC, NO DIFFE RENTI AL/PL ATELE T hematocrit 41.5 % 34.0-4 6.6 Not Available [facility] ([facility]) [address] [place], [address], 10/17/2023 08:31:35 10/16/1910/17/2023 CBC, NO DIFFE RENTI AL/PL ATELE T MCV 87 fL 79-97 Not Available [facility] ([facility]) [address] [place], [address], 10/17/2023 08:31:35 10/16/1910/17/2023 CBC, NO DIFFE RENTI AL/PL ATELE T MCH 29.1 pg 26.6-3 3.0 Not Available [facility] ([facility]) [address] [place], [address], 10/17/2023 08:31:35 10/16/1910/17/2023 CBC, NO DIFFE RENTI AL/PL ATELE T MCHC 33.5 g/dL 31.5-3 5.7 Not Available [facility] ([facility]) [address] [place], [address], 10/17/2023 08:31:35 10/16/19 24 10/17/2023 CBC, NO DIFFE RENTI AL/PL ATELE T RDW 13.5 % 11.7-1 5.4 Not Available [facility] ([facility]) [address], [place], [address], 10/17/2023 08:31:35 10/16/19 24 10/17/2023 VITAM IN D, 25-HY DROXY vitamin D, 25-hydroxy 15.7 NG/mL 30.0-1 00.0 below low normal Vitam in D defic iency has been defin ed by the Insti tute of [facility] ine and an Endoc rine Socie ty [...] Medic ine). 2010. Dieta ry refer ence lavell es for calci um and D. Giovany echols [place]: The [facility] [place] Press . 2. Roland johnson MF, Isis garcia [place], Scott off-F errar i SANCHEZ, et al. Evalu ation , treat ment, and preve ntion of vitam in D defic iency : an Endoc rine Socie ty clini patrick pract ice guide line. JCEM. 2010; 96(7) :1911 -30. Not Available [facility] ([facility]) [address], [place], [address], 10/17/2023 08:31:37 10/16/19 24 10/17/2023 NUSWA B VAGIN ITIS PLUS (VG+) atopobium vaginae LOW - 0 score Not Available [facility] ([facility]) [address] [facility], [place], [address], 10/18/2023 06:23:25 10/16/19 24 10/17/2023 NUA B VAGIN ITIS PLUS (VG+) bvab 2 LOW - 0 score Not Available [facility] ([facility]) [address] [facility], [place], [address], 10/18/2023 06:23:25 10/16/19 24 10/17/2023 NUA B VAGIN ITIS PLUS (VG+) megasphaera 1 LOW - 0 score Calcu late total score by astonin g the 3 indiv idual bacte rial vagin [...] prese nce of BV. Not Available [facility] ([facility]) [address], [place], [address], 10/18/2023 06:23:25 10/16/19 24 10/18/2023 NUA B VAGIN ITIS PLUS (VG+) lucero albicans, COREY NEGATI VE negati ve Not Available [facility] ([facility]) [address] [place], [address], 10/18/2023 06:23:25 10/16/19 24 10/18/2023 NUA B VAGIN ITIS PLUS (VG+) lucero glabrata, COREY NEGATI VE negati ve Not Available [facility] ([facility]) [address] [place], [address], 10/18/2023 06:23:25 10/16/19 24 10/18/2023 NUA B VAGIN ITIS PLUS (VG+) trich vag by COREY NEGATI VE negati ve Not Available [facility] ([facility]) [address] [place], [address], 10/18/2023 06:23:25 10/16/19 24 10/18/2023 NUSWA B VAGIN ITIS PLUS (VG+) chlamydia trachomatis, COREY NEGATI VE negati ve Not Available [facility] ([facility]) [address] [place], [address], 10/18/2023 06:23:25 10/16/19 24 10/18/2023 NUSWA B VAGIN ITIS PLUS (VG+) neisseria gonorrhoeae, COREY NEGATI VE negati ve Not Available [facility] ([facility]) [address] [facility], [place], [address], 10/18/2023 06:23:25 10/16/19 24 10/16/2023 HbA1c (hemo globi n A1c), blood HbA1c 5.6 Not Available In-Office Order Internal Use Only DO Not Attach Compendium DO Not Attach Compendium, Do Not Delete/merge, [id number] 10/16/2023 14:46:52 11/13/1911/13/2024 TSH+F REE T4 TSH 0.979 uIU/m L 0.450- 4.500 Not Available [facility] ([facility]) [address] [facility], [place], [address], 11/13/2024 11:13:00 11/13/1911/13/2024 TSH+F REE T4 T4,free(dire ct) 1.36 NG/dL 0.82-1 .77 Not Available [facility] ([facility]) [address] [place], [address], 11/13/2024 11:13:00 11/13/1911/13/2024 VITAM IN B12 AND FOLAT E vitamin B12 449 pg/mL 232-12 45 Not Available [facility] ([facility]) [address] [place], [address], 11/13/2024 11:13:00 11/13/19 25 11/13/2024 VITAM IN B12 AND FOLAT E folate (folic acid), serum 12.6 NG/mL >3.0 A serum folat e lokesh ntrat ion of less than 3.1 ng/mL is consi dered to repre sent clini patrick defic iency . Not Available [facility] ([facility]) [address] [facility], [place], [address], 11/13/2024 11:13:00 11/13/1911/13/2024 CBC, PLATE LET, NO DIFFE RENTI AL WBC 6.6 x10e3 /uL 3.4-10 .8 Not Available [facility] ([facility]) [address] [facility], [place], [address], 11/13/2024 11:13:01 11/13/19 25 11/13/2024 CBC, PLATE LET, NO DIFFE RENTI AL RBC 4.68 x10e6 /uL 3.77-5 .28 Not Available [facility] ([facility]) [address] [facility], [place], [address], 11/13/2024 11:13:01 11/13/19 25 11/13/2024 CBC, PLATE LET, NO DIFFE RENTI AL hemoglobin 13.6 g/dL 11.1-1 5.9 Not Available [facility] ([facility]) [address] [place], [address], 11/13/2024 11:13:01 11/13/1911/13/2024 CBC, PLATE LET, NO DIFFE RENTI AL hematocrit 42.4 % 34.0-4 6.6 Not Available [facility] ([facility]) [address] [place], [address], 11/13/2024 11:13:01 11/13/19 25 11/13/2024 CBC, PLATE LET, NO DIFFE RENTI AL MCV 91 fL 79-97 Not Available [facility] ([facility]) [address] [place], [address], 11/13/2024 11:13:01 11/13/19 25 11/13/2024 CBC, PLATE LET, NO DIFFE RENTI AL MCH 29.1 pg 26.6-3 3.0 Not Available [facility] ([facility]) [address] [place], [address], 11/13/2024 11:13:01 11/13/19 25 11/13/2024 CBC, PLATE LET, NO DIFFE RENTI AL MCHC 32.1 g/dL 31.5-3 5.7 Not Available [facility] ([facility]) [address] [place], [address], 11/13/2024 11:13:01 11/13/19 25 11/13/2024 CBC, PLATE LET, NO DIFFE RENTI AL RDW 13.4 % 11.7-1 5.4 Not Available [facility] ([facility]) [address] [facility], [place], [address], 11/13/2024 11:13:01 11/13/1911/13/2024 CBC, PLATE LET, NO DIFFE RENTI AL platelets 281 x10e3 /uL 150-45 0 Not Available [facility] ([facility]) [address] [place], [address],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 malignant neoplasm of colon 705888602 Z12.11 needs repeat colonoscop y in 2762-8899 2/2 poor preparatio n for first colonoscop y in 2015 patient refuses colonoscop y referral for now Colonoscopy declined 826 0664332 31634 Z53.20 needs repeat colonoscop y in 5881-2433 2/2 poor preparatio n for first colonoscop y in 2015 patient refuses colonoscop y referral for now Former lig ht tobacco smoker 2877395002 32850 Z87.891 quit 3-4 years ago Tremor 96471962 R25.1 Hyperlipid emia screening 698972879 Z13.220 Migraine with aura 46651 06 G43.109 stable for now [id number] Ricky Menendez MD [facility] [address] [place] [address] 01/10/2022 10:22:16 01/11/2022 09:56:35 Adult health examination 318335386 Z00.00 56 y/o HF presents for medical clearance for R rotator cuff surgery per Dr. Cain on 02/10/2022 . She continues to have R shoulder pain especially with movement. She has been having R lower tooth pain. Rupture of rotator cuff of right shoulder 0019153472 8509241 M75.101 R Rotator cuff tear on MRI of shoulder done on 11/03/2021 Pain of ri ght shoulder joint 5593420490 5115629 M25.511 09/09/2021 R shoulder x-ray showsOA of acromiocla vicular and glenohumer al jointsRang e of motion exercisesN Chelsy for steroid injections -referred on 09/08/2021 Body mass index 25-29 - overweight 206414518 Z68.26 BMI 26.8 Healthy weight range 115-152 Former lig ht tobacco smoker 0990121190 12014 Z87.891 quit 3-4 years ago Mixed hyperlipidemia 267 444674 E78.2 10/13/2021 cho 213Trig 144HDL 52LDL 135Avoid all breads, potatoes, cereal, pasta, rice, margarine, refined sugars, milk yogurt, ice cream, juices, soda (including diet), beer, and manmade or manufactur ed desserts. Enjoy steak, fish, chicken (no skin), pork, butter, vegetables , beans, nuts, whole eggs, cheese (low fat or skim), cream in your coffee. Prediabetes 045663358 R7 3.03 10/13/2021 HA1C 5.9 W atch [...] prediabete s worse. Increased frequency of urination 395671612 R35.0 Infection of tooth 54147 8007 K04.7 see dentist Vitamin D deficiency 347 74067 E55.9 Vitamin D 13.2Start Rx Vitamin D2 56395 IU once weekly for 12 weeksonce you complete RX buy otc vitamin D3 1000 IU once daily Depression screening 171 046939 Z13.31 negative [id number] Ricky Menendez MD [facility] [address] [place] [address] 05/26/2022 14:14:46 05/30/2022 08:56:34 Left lower quadrant pain 257725306 R10.32 Microscopic hematuria 19 6140802 R31.29 urinary frequencyh ematuria LLQ tenderness lower abdominal bloating Abdominal bloating 09822 9008 R14.0 avoid aggravatin g foods use Beano PRN Depression screening 171 729773 Z13.31 negative Mental hea lth screening 162113868 Z13.39 negative Body mass index 25-29 - overweight 697920348 Z68.26 BMI 27 Healthy weight range 115-806 [id number] Ricky Menendez MD [facility] [address] [place] [address] 08/29/2022 12:19:08 08/30/2022 14:48:06 Body mass index 25-29 - overweight 073784005 Z68.26 BMI 27 Healthy weight range 115-152 Acute sero us otitis media of bilateral ears 8315795446 557207 H65.03 Depression screening 171 752758 Z13.31 negative Mental hea lth screening 702788791 Z13.39 negative [id number] Kp Francois MD [facility] [address] [place] [address] 10/13/2022 10:11:06 10/16/2022 14:28:46 Body mass index 25-29 - overweight 918065949 Z68.26 BMI 27.1 Healthy weight range 115-152 Overweight 564910684 E66 .3 BMI 27.1 Healthy weight range 115-152 Gynecologi c examination 09000765 Z01.419 Last pap 10/13/2020 normal cytology negative HPV calcium rich foods handout vitamin D 2000 iu daily exercise weight loss diet patient refuses RPR and HIV testing Screening for malignant neoplasm of breast 140007137 Z12.31 Last mammogram 01/13/2022 needs more imaging Postmenopausal state 764 30867 Z78.0 Last menses 05-14-2014 Screening for malignant neoplasm of colon 364847943 Z12.11 needed repeat colonoscop y in 6218-6756 2/2 poor preparatio n for first colonoscop y in 2016agrees to referral now Former lig ht tobacco smoker 9144237902 43939 Z87.891 quit 3-4 years ago Migraine with aura 52719 06 G43.109 stable for now Mammograph ic mass of right breast 9930651993 9525629 R92.8 needs repeat imaging- was not done as patient had rotator cuff surgery and could not lift arm Mixed hyperlipidemia 267 261170 E78.2 10/13/2021 cho 213Trig 144HDL 52LDL 135Avoid all breads, potatoes, cereal, pasta, rice, margarine, refined sugars, milk yogurt, ice cream, juices, soda (including diet), beer, and manmade or manufactur ed desserts. Enjoy steak, fish, chicken (no skin), pork, butter, vegetables , beans, nuts, whole eggs, cheese (low fat or skim), cream in your coffee. Screening for disorder 844222519 Z13.9 10/13/2021V itamin D 13.2Treate d with vitamin D2 27807 IU once weeklyInst ructed to take vitamin D3 1000IU daily Vitamin D deficiency 347 15487 E55.9 Vitamin D 13.2Start Rx Vitamin D2 41543 IU once weekly for 12 weeksonce you complete RX buy otc vitamin D3 1000 IU once daily Depression screening 171 137230 Z13.31 negative Mental hea lt screening 081295312 Z13.39 negative [id number] Kp Francois MD [facility] [address] [address] 10/16/2023 14:02:02 10/17/2023 14:55:31 Gynecologic examination 38369107 Z01.419 Normal Geochemist examLast pap 11/02/2022 normal cytology neg HPV due in 2027Last mammogram 11/16/2022 BIRADS 1colonosco py UTD needs repeat in 5 years (2027)STD screen done will treat accordingl ySelf breast examcalciu m rich foods handoutvit giraldo D 1000 iu dailyexerc ise 40-50 minutes 4-5 days per weekweight lossdietPH Q 2-9 negGAD-7 negpatient refuses RPR and HIV testing Body mass index 25-29 - overweight 659295936 Z68.26 BMI 26.1 Healthy weight range 115-152 Overweight 919162813 E66 .3 BMI 26.1 Healthy weight range 115-152 Screening for malignant neoplasm of breast 423387556 Z12.31 Last mammogram 11/16/2022 BIRADS 1 Postmenopausal state 764 42426 Z78.0 Last menses 05-14-2014 Screening for malignant neoplasm of colon 474524747 Z12.11 Had colonoscop y on 12/21/2022 showed colon polyp repeat in 5 years Former lig ht tobacco smoker 6590255392 86235 Z87.891 quit 3-4 years ago Migraine with aura 45111 06 G43.109 stable for now Mixed hyperlipidemia 267 484583 E78.2 10/13/2021 cho 213Trig 144HDL 52LDL 135 [...] in your coffee. Vitamin D deficiency 347 08946 E55.9 Vitamin D 16.6Start Rx Vitamin D2 11839 IU once weekly for 12 weeksonce you complete RX buy otc vitamin D3 1000 IU once daily Depression screening 171 653551 Z13.31 negative Stomatitis 93132348 K12. 1 Fatigue 72958718 R53.83 Administra tion of diphtheria, pertussis, and tetanus vaccine 628984719 Z23 Last Tdap 02/17/2024 [id number] Tayo Mo MD [facility] [address] [place] [address] 07/16/2024 14:03:35 07/16/2024 14:39:36 Pain of left knee joint 6912963786 08295 M25.562 fell 2 months ago and landed with L leg/knee twisted under herhas had bump/swell ing to knee cap sincepain with pressing on L knee cap and kneelingPE x- prepatella r bursitis to L knee 2 cm x 2 cm, FROM L knee jointorder ed XR Patellar b ursitis of left knee 3509479146 354067 M70.52 refer to Ortho Pain of left heel 903981 1435 504395 M79.672 chronicfla res from time to [facility] and had steroid injections improvemen t with wearing flat shoesPEx- mild TTP L heelrefer back to podiatryc/ w OTC txs [id number] Ricky Menendez MD [facility] [address] [place] [address] 11/12/2024 14:13:43 11/13/2024 12:37:29 Pain of left knee joint 3797064674 72706 M25.562 fell 7months ago and landed with L leg/knee twisted under herhas had bump/swell ing to knee cap but it went down by the time she saw orthopain with pressing on L knee cap and kneeling 07/16/2024 knee XR normalSaw orthopedic s 08/28/2024O rthopedics wants an MRI-pt not sure if it was ordered will look at progress note and advisePati ent doesnt want to go to PT Patellar b ursitis of left knee 0850944072 660727 M70.52 referred to Ortho Pain of left heel 050591 1094 966358 M79.672 chronicfla res from time to [facility] and had steroid injections improvemen t with wearing flat shoesPEx- mild TTP L heelrefer back to podiatryc/ w OTC txssent to talent scout Bilateral tinnitus 20525 51470 102 H93.13 386299 Hearing test abnormal 31 0640225 R94.120 [id number] may need to see ENT [id number] Kp Francois MD [facility] [address] [place] [address] 12/19/2024 14:13:07 12/23/2024 08:47:16 Gynecologic examination 49897092 Z01.419 Last pap 10/13/2022 normal cytology neg HPV due in 2027Last MM 5Last colonoscop y done 12/21/2022 due in 2027 secondary to polypstd screen done will treat accordingl ycalcium rich foods handout vitamin D 1000 iu daily exercise weight lossweight bearing exercisesd iet patient refuses RPR and HIV testing Screening for malignant neoplasm of breast 312241482 Z12.31 Last mammogram 04/2024 normal BIRADS 2 Postmenopausal state 764 36354 Z78.0 Last menses 05-14-2014 Body mass index 25-29 - overweight 614237035 Z68.26 BMI 27 Healthy weight range 115-152 Former lig ht tobacco smoker 2659714210 64544 Z87.891 quit 6 years ago Migraine with aura 52234 06 G43.109 stable for now Depression screening 171 426145 Z13.31 892335 negative Vitamin D deficiency 347 94180 E55.9 07370 Vitamin D 15.7Start Rx Vitamin D2 39515 IU once weekly for 12 weeksonce you complete RX buy otc vitamin D3 1000 IU once daily Pneumococc al immunization status 717490791 Z23 0067304558 Health Concerns Section Related Observation LastModified by Organization Detai ls LastModified Time None Recorded Concern Status LastModified by Organization Details LastModified Time None Recorded Advance Directives Directive N: Payers Insurance Date Sequence Insurance Name Policy Number Policy Man Covered Member ID Man Member ID Guarantor Name 12/18/2024 1 [place] [id number] Violeta Gonzales [id number] Violeta Gonzales 10/13/2020 1 [facility] [id number] Isrrael Gonzales [id number] Violeta Gonzales 05/26/2022 1 [employer] [id number] Isrrael Gonzales [id number] Violeta Gonzales 01/02/2024 2 *SELF PAY* Betty Gonzales 10/16/2023 SLIDING FEE SCHEDULE - DISCOUNT Violeta Gonzales 08/19/2018 1 [facility] (PPO) [id number] Isrrael Gonzales [id number] Violeta Gonzales 08/27/2018 2 [facility] (PPO) [id number] Isrrael Gonzales [id number] Violeta Gonzales 08/27/2018 1 *SELF PAY* Betty Gonzales 03/27/2017 SLIDING FEE SCHEDULE - DISCOUNT Violeta Gonzales 10/17/2023 2 [employer] [id number] Isrrael Gonzales [id number] Violeta Gonzales Notes Date Note Type Note Provider Name and Address Organization Details Recorded Time 10/13/2022 text/html Annual GYNReport ed by PatientHistoryFor history, patient reportsno gynecologic complaintsandno change in interval history (had rotator cuff surgery).Genitourinary symptomsFor urinary symptoms, patient reportsno hematuriaandno incontinence. For vulva, patient reportsno genital lesion. For vagina, patient reportsnormal vaginal discharge. For menstrual cycle, (menopause 2013).Breast symptomsFor breast, patient reportsno breast pain,no breast lump, andno nipple discharge.Contraceptio nFor current contraception, patient reportsmonogamous relationship(menopause ).Endocrine symptomsFor sexual complaints, patient reportsno sexual complaints,no pain during intercourse, andnormal libido. For menopausal symptoms, patient reportsno menopausal symptomsandnormal vaginal lubrication.Psychologi patrick symptomsFor psychological symptoms, patient reportsno depression,no anxiety, andno pmdd.Preventative measuresFor preventive measures, patient reportsencourage self breast examination,encourage regular exercise,encourage no tobacco use,followed with q3 year pap smear and high risk hpv typing,needs to schedule mammogram, andneeds to schedule colonoscopy(needed repeat colonoscopy [phone]-qaldhw to referral now).ROS as noted in the HPI 57 y/o HF [id number] here for well woman exam. SHe has quit smoking 5 cigs daily about 4 years ago.T he patient agrees to referral for colonoscopy now. She voices she did not follow thru on additional imaging of R breast last year secondary to having rotator cuff surgery. She reports she has not felt any masses on breasts. Madi Lacy, NANNY/HOUSEHOLD MANAGER- Attn: Accounting,[address] [place], [address], [facility] 10/13/2022 14:30:42 10/16/2023 text/html Annual GYNReport ed by PatientHistoryFor history, patient reportsno gynecologic complaintsandno change in interval history (had rotator cuff surgery).Genitourinary symptomsFor urinary symptoms, patient reportsno hematuriaandno incontinence. For vulva, patient reportsno genital lesion. For vagina, patient reportsnormal vaginal discharge. For menstrual cycle, (menopause 2013).Breast symptomsFor breast, patient reportsno breast pain,no breast lump, andno nipple discharge.Contraceptio nFor current contraception, patient reportsmonogamous relationship(menopause ).Endocrine symptomsFor sexual complaints, patient reportsno sexual complaints,no pain during intercourse, andnormal libido. For menopausal symptoms, patient reportsno menopausal symptomsandnormal vaginal lubrication.Psychologi patrick symptomsFor psychological symptoms, patient reportsno depression,no anxiety, andno pmdd.Preventative measuresFor preventive measures, patient reportsencourage self breast examination,encourage regular exercise,encourage no tobacco use,followed with q3 year pap smear and high risk hpv typing,needs to schedule mammogram, andneeds to schedule colonoscopy(needed repeat colonoscopy [phone]-yojcep to referral now).ROS as noted in the HPI 57 y/o HF [id number] here for well woman exam. SHe has quit smoking 5 cigs daily about 5 years ago. She feels a little tired. She has urinary frequency. She has been having polydipsia. DICK Browning Attn: Accounting,[address] [place], [address], [facility] 12/19/2023 15:17:56 07/16/2024 text/html ROS as noted in the HPI Pt presents with L heel and L [...] H/o chronic L heel pain, went to talent scout, told she has high arches, and given steroid injections. Admits that wearing flat shoes helps with heel pain, but flat shoes cause her to have low back pain. Pt has been using ice and rolling out L heel with frozen water bottle. MIGUEL ÁNGEL SALDANA Attn: Accounting,[address] [facility], [place], [address], [facility] 07/16/2024 16:04:25 11/12/2024 text/html ROS as noted in the HPI Pt presents with L heel and L knee pain x6 months. She slipped on ice, fell with her L leg/knee twisted underneath her and has had bump on knee since then. She has pain with pressing on knee cap and kneeling. Reports that L heel pain started flaring up after she fell. H/o chronic L heel pain, went to talent scout, told she has high arches, and given steroid injections. Admits that wearing flat shoes helps with heel pain, but flat shoes cause her to have low back pain. Pt has been using ice and rolling out L heel with frozen water bottle. DICK Browning Attn: Accounting,[address] [facility], [place], [address], [facility] 11/19/2024 15:36:41 12/19/2024 text/html Annual GYNReport ed by PatientHistoryFor history, patient reportsno gynecologic complaintsandno change in interval history.Genitourinary symptomsFor urinary symptoms, patient reportsno hematuriaandno incontinence. For vulva, patient reportsno genital lesion. For vagina, patient reportsnormal vaginal discharge. For menstrual cycle, (menopause 2013).Breast symptomsFor breast, patient reportsno breast pain,no breast lump, andno nipple discharge.Contraceptio nFor current contraception, patient reportsmonogamous relationship(menopause ).Endocrine symptomsFor sexual complaints, patient reportsno sexual complaints,no pain during intercourse, andnormal libido. For menopausal symptoms, patient reportsno menopausal symptomsandnormal vaginal lubrication.Psychologi patrick symptomsFor psychological symptoms, patient reportsno depression,no anxiety, andno pmdd.Preventative measuresFor preventive measures, patient reportsencourage self breast examination,encourage regular exercise,encourage no tobacco use, andfollowed with q3 year pap smear and high risk hpv typing(needs repeat colonoscopy 2027).ROS as noted in the HPI 59 y/o HF [id number] here for well woman exam. SHe has quit smoking 5 cigs daily about 6 years ago. Last pap done normal cytology on 10/13/2020 . Last MM done on 05/06/2025 BIRADS 2. DICK Browning Attn: Accounting,[address] [facility], [place], [address], [facility] 12/19/2024 15:58:33 OBGyn Episode Ob Episode Information Episode Created Date Number of Fetuses Patient Bloodtype Patient rh Status Prepregnancy Weight lbs Domestic Partner Domestic Partner Phone Father Name Licensing And Registration Director Status 04/02/20 18 1 CLOSED Fetus Data First Name Last Name Admitted to NICU Weight (g) Sex Living Outcome Pediatric Complications Fetus ID Race Codes Race Delivery Type M Full Term [id number] Vaginal Mitchel Calculation Initial Mitchel Date Initial [...] Domestic Partner Domestic Partner Phone Father Name Licensing And Registration Director Status 04/02/20 18 1 CLOSED Fetus Data First Name Last Name Admitted to NICU Weight (g) Sex Living Outcome Pediatric Complications Fetus ID Race Codes Race Delivery Type F Full Term [id number] Vaginal Mitchel Calculation Initial Mitchel Date Initial [...]
== END 2025-05-13 09:38 | disposition home or self-care (01) ==
LOC: ANHFOHIMG 09:39
PROVIDERS: PCP Registered Nurse; Visit Provider Registered Nurse
DX: Z12.31 Encounter for screening mammogram for malignant neoplasm of breast (principal)
CPT/HCPCS: 77063; 77067